=== PATIENT | male | born 1965 | race Caucasian/White ===

== ENCOUNTER → 2020-02-28 09:03 | Outpatient (BNVA) | payer MEDICARE, SELFPAY | PROVIDERS: PCP Family Medicine; Referring Provider Family Medicine; Visit Provider Psychiatry & Neurology Neurology | DX: Z76.89 Persons encountering health services in other specified circumstances (principal) ==

== ENCOUNTER → 2020-03-06 13:40 | Outpatient (BNVA) | payer MEDICARE, SELFPAY | PROVIDERS: Visit Provider Internal Medicine Gastroenterology | DX: K52.9 Noninfective gastroenteritis and colitis, unspecified (principal) | CPT/HCPCS: 99212; Q3014 ==

== ENCOUNTER → 2020-03-14 13:52 | Outpatient (REF) | payer MEDICARE, SELFPAY | LOC: HO.SL 13:52 | PROVIDERS: Visit Provider Psychiatry & Neurology Neurology | DX: R06.83 Snoring (principal); G47.10 Hypersomnia, unspecified; G47.00 Insomnia, unspecified | CPT/HCPCS: 95806 ==

== ENCOUNTER → 2020-06-12 09:11 | Outpatient (BNVA) | payer MEDICARE, SELFPAY | PROVIDERS: PCP Family Medicine; Visit Provider Nurse Practitioner Family | DX: Z76.89 Persons encountering health services in other specified circumstances (principal) | CPT/HCPCS: Q3014 ==

== ENCOUNTER → 2020-06-19 08:41 | Outpatient (BNVA) | payer MEDICARE, SELFPAY | PROVIDERS: PCP Family Medicine; Visit Provider Internal Medicine Gastroenterology | CPT/HCPCS: Q3014 ==

== ENCOUNTER → 2020-08-28 10:07 | Outpatient (BNVA) | payer MEDICARE, SELFPAY | PROVIDERS: PCP Family Medicine; Visit Provider Nurse Practitioner Family | DX: Z13.89 Encounter for screening for other disorder (principal) | CPT/HCPCS: Q3014 ==

== ENCOUNTER 2020-09-27 11:44 | Outpatient (REF) | payer MEDICARE, SELFPAY ==
[2020-09-27 14:36] LABS: Alanine Aminotransferase 150 U/L (0-40); Albumin Level 4.8 g/dL (3.5-5.0); Alkaline Phosphatase 96 U/L (39-117); Anion Gap 14 (12-20); Aspartate Amino Transferase 178 U/L (5-37); Bilirubin Total 0.8 mg/dL (0.0-1.0); Blood Urea Nitrogen 10 mg/dL (9-16); Calcium 9.8 mg/dL (8.4-10.2); Carbon Dioxide 24 mmol/L (22-29); Chloride 104 mmol/L (96-108); Cholesterol 183 mg/dL; Estimated Glomerular Filt Rate > 60; Glucose Fasting 108 mg/dL (60-99); HDL Cholesterol 56 mg/dL; LDL Cholesterol Calculated 89 mg/dl; Potassium 4.5 mmol/L (3.3-5.1); Sodium 137 mmol/L (135-145); Total Protein 8.2 g/dL (6.5-8.0); Triglycerides 192 mg/dL
[2020-09-27 14:57] LABS: Prostate Specific Antigen Scr 0.65 ng/mL (<0.05-4.0); TSH reflex Free T4 0.91 uIU/mL (0.32-4.0)
== END 2020-09-27 11:45 | disposition home or self-care (01) ==
LOC: HO.WFDLDS 11:44
PROVIDERS: Visit Provider Family Medicine
DX: Z00.00 Encounter for general adult medical examination without abnormal findings (principal); Z12.5 Encounter for screening for malignant neoplasm of prostate
CPT/HCPCS: 36415; 80053; 80061; 84153; 84443

== ENCOUNTER 2022-04-11 09:42 | Outpatient (REF) | payer OTHER, SELFPAY ==
[2022-04-11 12:15] LABS: Magnesium 1.8 mg/dL (1.6-2.6)
[2022-04-11 14:53] LABS: Vitamin B12 880 pg/mL (200-900)
[2022-04-11 15:07] LABS: Folate 5.7 ng/mL (> or = 4.0)
[2022-04-17 15:37] LABS: Vitamin B1 <6 nmol/L (8-30)
[2022-04-19 15:08] LABS: Vitamin B6 6.4 ng/mL (2.1-21.7)
== END 2022-04-11 09:43 | disposition home or self-care (01) ==
LOC: HO.WFDLDS 09:42
PROVIDERS: Visit Provider Hospitalist
DX: K59.00 Constipation, unspecified (principal); F10.10 Alcohol abuse, uncomplicated
CPT/HCPCS: 36415; 82607; 82746; 83735; 84207; 84425

== ENCOUNTER 2022-12-09 10:30 | Outpatient (AMB) | payer OTHER, MEDICAID, SELFPAY ==
[2022-12-09 10:34] VITALS: BP 132/74; PULSE 96; O2SAT 97; BMI 32.7
--- NOTE | 2022-12-09 10:34 | A.OFFPC_ITS ---
Vital Signs 12/09/22 10:34 Height 5 ft 10 in Weight 228 lb 4 oz BMI 32.7 BP 132/74 Blood Pressure Location Lt brachial Position Sitting Pulse 96 Pulse Source Pulse Oximeter Pulse Oximetry (%) 97 Oxygen Delivery Method Room Air Intake Visit Reasons: [facility] 11/18/22 - swelling of legs/abdomen Intake Note: Patient is here for follow up ED visit on 11/18. Swollen in legs, feet, and abdomen. Allergies No Known Allergies Allergy (Verified 12/09/22 10:39) Medication List - Last Reconciled 12/09/22 by Ryan Espinal MD amitriptyline 20 mg (2 x 10 mg) PO BEDTIME blood pressure monitor Automatic, Digital. Dx: I10. Daily As directed, 999 days/lifetime clonidine HCl 0.1 mg PO BID 30 days clonidine HCl 0.1 mg PO BID 30 days clotrimazole-betamethasone 1-0.05 % 1 appl topical BID 2 weeks COVID-19 vacc,mRNA(Pfizer)(PF) 0.3 mL IM Q3W mesalamine ER 1.5 grams (4 x 0.375 gram) PO QAM 90 days omeprazole 40 mg PO DAILY pramipexole 0.25 mg PO BEDTIME simvastatin 20 mg PO DAILY sulfamethoxazole-trimethoprim 800-160 mg (Bactrim DS) 1 tab PO Q12H 10 days topiramate 50 mg PO DAILY varenicline 1 mg PO BID 12 weeks vitamin B complex ER (Complex B-100 tablet,extended release) 1 tab PO DAILY 90 days Tobacco use date assessed: 12/09/22 Dental Screening Dental Screen Date: 12/09/22 Did you have a dental visit in the last 12 months?: No Did you have a dental problem in the last 6 months where you did not have access to dental care?: No Was dental information given to patient?: Patient has dentist HPI [facility] 11/18/22 - swelling of legs/abdomen HPI Details Pt presents to follow-up emergency department visit for bilateral lower extremity edema/fall. Pt stated he has had swelling in his legs bilaterally, chronic and had been getting worse. He had tripped on the sidewalk. 2+ LE edema was found and was apparently secondary to cirrhosis. He reports he has cut back on his alcohol use since his visit to the ED. COUNTS INCLUDE 234 BEDS AT THE [facility] Surgical History H/O colonoscopy History of arthroscopy of right knee History of esophagogastroduodenoscopy (EGD) History of hip replacement Family History Father Diabetes mellitus Mother HTN (hypertension) Brother No problems noted. Sister No problems noted. Sister No problems noted. Sister No problems noted. Social History Household Members: Friend(s) Housing: Apartment Alcohol intake: current Alcohol intake frequency: a few times a month Patient Tobacco Use Status: Current everyday Tobacco user Cigarettes Per Day: 6 e-Cigarette/Vaping Use: Never Used service: No Current occupational status: disabled Cognitive needs: No Hearing needs: No Vision needs: No Review of Systems Const Denies chills, Denies fatigue, Denies fever(s), Denies headache(s) and Denies weakness ENT Denies dizziness and Denies headache(s) Card Denies dyspnea Resp Denies cough, Denies dyspnea, Denies wheezing and Denies other (shortness of breath) Musc Denies numbness and Denies tingling Neuro Denies dizziness, Denies headache(s), Denies numbness, Denies tingling and Denies weakness Psych Denies anxiety and Denies depression Endo Denies fatigue Aller/Immun Denies wheezing Physical exam (Primary Care) Vital Signs: Last Vital Signs Pulse 96 12/09/22 10:34 BP 132/74 12/09/22 10:34 Pulse Ox 97 12/09/22 10:34 Oxygen Delivery Method Room Air 12/09/22 10:34 BMI result Body Mass Index 32.7 Tobacco/Smoking Status: Tobacco use Status Tobacco use date assessed 12/09/22 12/09/22 10:40 Patient Tobacco Use Status Current everyday Tobacco 12/09/22 10:40 e-Cigarette/Vaping Use Never Used 12/09/22 10:40 Const General: well developed; No acute distress Nutritional Appearance: well nourished Orientation/consciousness: patient oriented x3 HENMT Head: Yes normocephalic and Yes atraumatic Eyes General: appearance normal, both eyes and all related structures Pupils: Equal, round and reactive pupils present EOM: EOMs intact bilaterally Resp Effort & Inspection: normal respiratory effort Neuro General: patient oriented x3 and gait normal Cranial nerves: Yes Equal, round and reactive pupils present Psych Affect: normal affect Assessment and Plan Assessment & Plan (1) Swelling of lower extremity: Code(s): M79.89 - Other specified soft tissue disorders Plan: Swelling of lower extremities which is primarily a pitting edema. Will give him furosemide but I did let him know that this may have limited affect as this is primarily due to liver failure. Elevate legs Check labs Encouraged weaning and cessation of alcohol (2) Cirrhosis: Code(s): K74.60 - Unspecified cirrhosis of liver Plan: Portal hypertension and cirrhosis of the liver with ascites Will refer to Gastroenterology. Started a beta-leonard for his elevated blood pressures with high-normal pulse and also portal hypertension. Strongly encouraged patient to wean and cease alcohol - see below (3) Ascites: Code(s): R18.8 - Other ascites Plan: As above, patient has significant buildup of fluid in his abdomen secondary to cirrhosis from his alcohol abuse. Encouraged cessation Referred to GI (4) Alcohol abuse: Code(s): F10.10 - Alcohol abuse, uncomplicated Plan: Discussed with patient that ultimately the above issues are secondary to alcohol abuse. [place] [facility] [place] says he has no transportation. Offered a pT1 form to get him transportation and he still declines. We discussed that ultimately he will need to make a decision that he is ready to discontinue alcohol use. Advised weaning and cessation. I let him know that he can contact me regarding help with this through the a addiction medicine department. Orders: Orders Comprehensive Met. Panel Today M79.89 - Other specified soft tissue disorders Complete Blood Count Auto Diff Today Z00.00 - Encounter for general adult medical examination without abnormal findings UA and rflx microscopic Today Z00.00 - Encounter for general adult medical examination without abnormal findings Medications: New nadolol 20 mg PO DAILY 30 tabs 2RF 30 days furosemide 20 mg PO DAILY 30 tabs 1RF 30 days Coding Level of Care Code Est Pt Level 4 (37830) Diagnoses Swelling of lower extremity M79.89 Cirrhosis K74.60 Ascites R18.8 Alcohol abuse F10.10
== END 2022-12-09 11:38 | disposition home or self-care (01) ==
PROVIDERS: PCP Family Medicine; Visit Provider Family Medicine
DX: M79.89 Other specified soft tissue disorders (principal); K74.60 Unspecified cirrhosis of liver; R18.8 Other ascites; F10.10 Alcohol abuse, uncomplicated
CPT/HCPCS: 99214

== ENCOUNTER 2022-12-09 11:41 | Outpatient (REF) | payer OTHER, MEDICAID, SELFPAY ==
[2022-12-09 14:39] LABS: MANUAL DIFF FLAG NO
[2022-12-09 14:47] LABS: Basophils Percent Auto 0.8 % (0-2); Eosinophils Absolute Auto 0.1 X10*3/uL (0.0-0.4); Eosinophils Percent Auto 2.7 % (0-4); Hematocrit 36.4 % (42.0-52.0); Hemoglobin 12.8 g/dl (14.0-18.0); Imm Gran Abs Auto 0.01 X10*3/uL (0.00-0.03); Imm Gran Pct Auto 0.2 % (0.0-0.4); Lymphocytes Absolute Auto 1.4 X10*3/uL (1.2-4.9); Lymphocytes Percent Auto 27.7 % (20-40); Mean Corpuscular HGB Conc 35.2 g/dl (31.0-36.0); Mean Corpuscular Hemoglobin 35.4 pg (27.0-33.0); Mean Corpuscular Volume 100.6 fL (80.0-98.0); Mean Platelet Volume 10.3 fL (9.4-12.4); Monocytes Absolute Auto 0.5 X10*3/uL (0.1-1.2); Monocytes Percent Auto 9.1 % (2-11); Neutrophils Absolute Auto 3.1 x10*3/uL (2.0-8.3); Neutrophils Percent Auto 59.5 % (45-73); Red Blood Count 3.62 X10*6/uL (4.60-5.80); Red Cell Distribution Width 13.5 % (11.0-16.0); White Blood Count 5.2 X10*3/uL (4.8-10.8)
[2022-12-09 15:03] LABS: Alanine Aminotransferase 29 U/L (0-40); Albumin Level 2.8 g/dL (3.5-5.0); Alkaline Phosphatase 112 U/L (39-117); Anion Gap 12 (12-20); Aspartate Amino Transferase 77 U/L (5-37); Bilirubin Total 1.4 mg/dL (0.0-1.0); Blood Urea Nitrogen 4 mg/dL (9-16); Calcium 8.5 mg/dL (8.4-10.2); Carbon Dioxide 21 mmol/L (22-29); Chloride 104 mmol/L (96-108); Estimated Glomerular Filt Rate > 60; Glucose Random 106 mg/dL (60-115); Potassium 4.2 mmol/L (3.3-5.1); Sodium 133 mmol/L (135-145); Total Protein 7.4 g/dL (6.5-8.0)
[2022-12-09 15:28] LABS: Platelet Count 96 X10*3/uL (160-400)
== END 2022-12-09 11:42 | disposition home or self-care (01) ==
LOC: HO.WFDLDS 11:41
PROVIDERS: Visit Provider Family Medicine
DX: Z00.00 Encounter for general adult medical examination without abnormal findings (principal); M79.89 Other specified soft tissue disorders
CPT/HCPCS: 36415; 80053; 85025

== ENCOUNTER 2023-01-07 10:28 | Outpatient (AMB) | payer OTHER, MEDICAID, SELFPAY ==
[2023-01-07 10:32] VITALS: BP 124/62; PULSE 75; RESP 12; TEMP 36.6; O2SAT 99; BMI 27.7
--- NOTE | 2023-01-07 10:32 | MHC.PC.OV ---
Vital Signs 01/07/23 10:32 Height 5 ft 10 in Weight 193 lb 4 oz BMI 27.7 BP 124/62 Blood Pressure Location Rt brachial Position Sitting Respiration 12 Pulse 75 Pulse Source Pulse Oximeter Temp 97.8 F Temp Source Temporal Artery Scan Pulse Oximetry (%) 99 Oxygen Delivery Method Room Air Intake Visit Reasons: f/u abdominal swelling, LE swelling Intake Note: Patient states that he was told to go to GI office and states that he ended up losing 20 pounds within the month and didn't think it was necessary to go see GI. Patient would like yo know if its still needed and states he did receive letter in mail from GI office. 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 Had given him a script for furosemide. Labs were drawn 12/09/22. Reviewed labs with pt. Macrocytic anemia. Mildly low sodium at 133. Liver enzymes imprved from labs drawn 09/27/20. AST 77, ALT 29. [facility] Medical History No pertinent past medical history Surgical History History of hip replacement History of esophagogastroduodenoscopy (EGD) H/O colonoscopy History of arthroscopy of right knee Family History Father Diabetes mellitus Mother HTN (hypertension) Brother No problems noted. Sister No problems noted. Sister No problems noted. Sister No problems noted. Social History Household Members: Friend(s) Housing: Apartment Alcohol intake: current Alcohol intake frequency: a few times a month Patient Tobacco Use Status: Current everyday Tobacco user Cigarettes Per Day: 6 e-Cigarette/Vaping Use: Never Used service: No Current occupational status: disabled Cognitive needs: No Hearing needs: No Vision needs: No Physical exam (Primary Care) Vital Signs: Last Vital Signs Temp 97.8 F 01/07/23 10:32 Pulse 75 01/07/23 10:32 Resp 12 01/07/23 10:32 BP 124/62 01/07/23 10:32 Pulse Ox 99 01/07/23 10:32 Oxygen Delivery Method Room Air 01/07/23 10:32 BMI result Body Mass Index 27.7 Tobacco/Smoking Status: Tobacco use Status Tobacco use date assessed 12/09/22 01/07/23 10:45 Patient Tobacco Use Status Current everyday Tobacco 01/07/23 10:45 e-Cigarette/Vaping Use Never Used 01/07/23 10:45 Assessment and Plan Assessment & Plan (1) Ascites: Code(s): R18.8 - Other ascites Plan: Mildly improved. Patient has greatly decreased his alcohol intake. Encouraged him to continue weaning down with a goal of abstinence. He is working on this (2) Cirrhosis: Code(s): K74.60 - Unspecified cirrhosis of liver Plan: As above (3) Swelling of lower extremity: Code(s): M79.89 - Other specified soft tissue disorders Plan: Much improved. Continue furosemide Elevate legs Check renal function (4) Alcohol abuse: Code(s): F10.10 - Alcohol abuse, uncomplicated Plan: As above work at cessation (5) Elevated transaminase level: Code(s): R74.01 - Elevation of levels of liver transaminase levels Plan: Improving Continue to avoid alcohol (6) Macrocytic anemia: Code(s): D53.9 - Nutritional anemia, unspecified Plan: Likely multifactorial but primarily due to direct effects of alcohol intake and liver failure. Will repeat CBC as he has decreased his drinking He is on a B12 supplement (7) Hyponatremia: Code(s): E87.1 - Hypo-osmolality and hyponatremia Plan: Mild hyponatremia Will recheck and follow this Orders: Orders Comprehensive Met. Panel Today K74.60 - Unspecified cirrhosis of liver Complete Blood Count Auto Diff Today D53.9 - Nutritional anemia, unspecified, Z00.00 - Encounter for general adult medical examination without abnormal findings Coding Level of Care Code Est Pt Level 4 (13231) Diagnoses Ascites R18.8 Cirrhosis K74.60 Swelling of lower extremity M79.89 Alcohol abuse F10.10 Elevated transaminase level R74.01 Macrocytic anemia D53.9 Hyponatremia E87.1
== END 2023-01-07 11:57 | disposition home or self-care (01) ==
PROVIDERS: PCP Family Medicine; Visit Provider Family Medicine
DX: R18.8 Other ascites (principal); K74.60 Unspecified cirrhosis of liver; M79.89 Other specified soft tissue disorders; F10.10 Alcohol abuse, uncomplicated; R74.01 Elevation of levels of liver transaminase levels; D53.9 Nutritional anemia, unspecified; E87.1 Hypo-osmolality and hyponatremia
CPT/HCPCS: 99214

== ENCOUNTER 2023-07-06 15:52 | Outpatient (AMB) | payer MEDICARE, SELFPAY ==
--- NOTE | 2023-07-06 15:59 | MHC.PC.OV ---
Vital Signs 07/06/23 16:02 Height 5 ft 10 in Weight 192 lb 6 oz BMI 27.6 BP 122/70 Blood Pressure Location Lt brachial Position Sitting Pulse 96 Pulse Source Pulse Oximeter Pulse Oximetry (%) 97 Oxygen Delivery Method Room Air Intake Visit Reasons: knee pain Intake Note: Patient is here with left knee pain, went out 3 times yesterday. He states the right knee is more painful. Allergies No Known Allergies Allergy (Verified 07/06/23 16:05) Medication List - Last Reconciled 07/06/23 by Ryan Espinal MD amitriptyline 20 mg (2 x 10 mg) PO BEDTIME amoxicillin 875 mg PO ONCE 1 day blood pressure monitor Automatic, Digital. Dx: I10. Daily As directed, 999 days/lifetime clonidine HCl 0.1 mg PO BID 30 days furosemide 20 mg PO DAILY 90 days nadolol 20 mg PO DAILY 30 days omeprazole 40 mg PO DAILY pramipexole 0.25 mg PO BEDTIME simvastatin 20 mg PO DAILY topiramate 50 mg PO DAILY varenicline 1 mg PO BID 12 weeks vitamin B complex ER (Complex B-100 tablet,extended release) 1 tab PO DAILY 90 days Tobacco use date assessed: 07/06/23 HPI knee pain HPI Details 58 y/o male presents today with complaints of bilateral knee pain with instability. Pt reports knee pain started yesterday and that something had come out while climbing down the stairs when he felt his knees give out. He reports he felt his knees give out 3 times. Pt reports recent R knee x-ray at [facility]. He notes he is not using anything for pain meds. [facility] Medical History No pertinent past medical history Surgical History History of hip replacement History of esophagogastroduodenoscopy (EGD) H/O colonoscopy History of arthroscopy of right knee Family History Father Diabetes mellitus Mother HTN (hypertension) Brother No problems noted. Sister No problems noted. Sister No problems noted. Sister No problems noted. Social History Household Members: Friend(s) Housing: Apartment Alcohol intake: current Alcohol intake frequency: a few times a month Patient Tobacco Use Status: Current everyday Tobacco user Cigarettes Per Day: 6 e-Cigarette/Vaping Use: Never Used service: No Current occupational status: disabled Cognitive needs: No Hearing needs: No Vision needs: No Review of Systems Const Denies chills, Denies fatigue, Denies fever(s), Denies headache(s) and Denies weakness ENT Denies dizziness and Denies headache(s) Card Denies dyspnea Resp Denies cough, Denies dyspnea, Denies wheezing and Denies other (shortness of breath) Musc Details: R knee pain and swelling Denies numbness and Denies tingling Neuro Denies dizziness, Denies headache(s), Denies numbness, Denies tingling and Denies weakness Psych Denies anxiety and Denies depression Endo Denies fatigue Aller/Immun Denies wheezing Physical exam (Primary Care) Vital Signs: Last Vital Signs Pulse 96 07/06/23 16:02 BP 122/70 07/06/23 16:02 Pulse Ox 97 07/06/23 16:02 Oxygen Delivery Method Room Air 07/06/23 16:02 BMI result Body Mass Index 27.6 Tobacco/Smoking Status: Tobacco use Status Tobacco use date assessed 07/06/23 07/06/23 16:07 Patient Tobacco Use Status Current everyday Tobacco 07/06/23 16:00 e-Cigarette/Vaping Use Never Used 07/06/23 16:00 Const General: well developed; No acute distress Nutritional Appearance: well nourished Orientation/consciousness: patient oriented x3 HENMT Head: Yes normocephalic and Yes atraumatic Eyes General: appearance normal, both eyes and all related structures Pupils: Equal, round and reactive pupils present EOM: EOMs intact bilaterally Resp Effort & Inspection: normal respiratory effort Skin Other: 1 cm neoplasm at bridge of his nose Neuro General: patient oriented x3 and gait normal Cranial nerves: Yes Equal, round and reactive pupils present Psych Affect: normal affect Assessment and Plan Assessment & Plan (1) Bilateral knee pain: Code(s): M25.561 - Pain in right knee; M25.562 - Pain in left knee Plan: Right?knee?pain?with?effusion?and?locking.??Concern?for?meniscal?injury?and?patient?notes?that?he?has?had?meniscal?injuries?to?his?right?knee?in?the?past. Check?x-ray?and?refer?to?ortho Left?knee?pain?with?effusion?and?sensation?of?giving?out. Concern?for?ligamentous?injury Check?x-ray?and?refer?to?ortho Given?patient's?alcohol?use?and?liver?disease?as?well?as?stomach?problems,?he?is?avoiding?Tylenol?and?NSAIDs. Will?have?him?use?prednisone?and?he?can?use?diclofenac?gel?as?well Ice/heat (2) Alcohol abuse: Code(s): F10.10 - Alcohol abuse, uncomplicated Plan: Discussed?with?patient?that?his?alcohol?use liver?and?stomach?issues?limit?medications?and?treatments?we?can?avail?ourselves?of?for?his?knees?and?other?pain. 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 Referred?to?dermatology Orders: Orders XR knee RT 3V Today M25.561 - Pain in right knee, M25.562 - Pain in left knee XR knee LT 3V Today M25.561 - Pain in right knee, M25.562 - Pain in left knee Referrals Orthopedics Referral M25.561 - Pain in right knee, M25.562 - Pain in left knee Dermatology Referral D48.5 - Neoplasm of uncertain behavior of skin Pain Management Referral G89.29 - Other chronic pain, M54.9 - Dorsalgia, unspecified Medications: New prednisone 40 mg (2 x 20 mg) PO DAILY 10 tabs 0RF 5 days Coding Level of Care Code Est Pt Level 4 (63760) Diagnoses Bilateral knee pain M25.561; M25.562 Alcohol abuse F10.10 Chronic back pain M54.9; G89.29 Neoplasm of uncertain behavior of skin D48.5
[2023-07-06 16:02] VITALS: BP 122/70; PULSE 96; O2SAT 97; BMI 27.6
== END 2023-07-06 16:45 | disposition home or self-care (01) ==
PROVIDERS: PCP Family Medicine; Visit Provider Family Medicine
DX: M25.561 Pain in right knee (principal); M25.562 Pain in left knee; F10.10 Alcohol abuse, uncomplicated; M54.9 Dorsalgia, unspecified; G89.29 Other chronic pain; D48.5 Neoplasm of uncertain behavior of skin
CPT/HCPCS: 99214

== ENCOUNTER 2023-07-27 08:49 | Outpatient (AMB) | payer MEDICARE, SELFPAY ==
--- NOTE | 2023-07-27 08:42 | A.OFFPC_ITS ---
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 Following anemia and liver enzymes. Had referred him to ortho for his knees. Referred to pain management for his low back pain. No recent labs to review. R Knee x-ray at [facility] shows osteoarthritis, worst in the medial compartment. L knee x-ray shows moderate tricompartmental degenerative osteoarthritis but no acute abnormality. Trace suprapatellar effusion. He continues using ibuprofen for relief. [facility] Medical History No pertinent past medical history Surgical History History of hip replacement History of esophagogastroduodenoscopy (EGD) H/O colonoscopy History of arthroscopy of right knee Family History Father Diabetes mellitus Mother HTN (hypertension) Brother No problems noted. Sister No problems noted. Sister No problems noted. Sister No problems noted. Social History Household Members: Friend(s) Housing: Apartment Alcohol intake: current Alcohol intake frequency: a few times a month Patient Tobacco Use Status: Current everyday Tobacco user Cigarettes Per Day: 6 e-Cigarette/Vaping Use: Never Used service: No Current occupational status: disabled Cognitive needs: No Hearing needs: No Vision needs: No Review of Systems Const Denies chills, Denies fatigue, Denies fever(s), Denies headache(s) and Denies weakness ENT Denies dizziness and Denies headache(s) Card Denies dyspnea Resp Denies cough, Denies dyspnea, Denies wheezing and Denies other (shortness of breath) Musc Denies numbness and Denies tingling Neuro Denies dizziness, Denies headache(s), Denies numbness, Denies tingling and Denies weakness Psych Denies anxiety and Denies depression Endo Denies fatigue Aller/Immun Denies wheezing Physical exam (Primary Care) Tobacco/Smoking Status: Tobacco use Status Tobacco use date assessed 07/06/23 07/27/23 08:47 Patient Tobacco Use Status Current everyday Tobacco 07/27/23 08:47 e-Cigarette/Vaping Use Never Used 07/27/23 08:47 Const General: well developed; No acute distress Nutritional Appearance: well nourished Orientation/consciousness: patient oriented x3 HENMT Head: Yes normocephalic and Yes atraumatic Eyes General: appearance normal, both eyes and all related structures Pupils: Equal, round and reactive pupils present EOM: EOMs intact bilaterally Resp Effort & Inspection: normal respiratory effort Neuro General: patient oriented x3 and gait normal Cranial nerves: Yes Equal, round and reactive pupils present Psych Affect: normal affect Telehealth Telehealth Location of provider rendering services: practice address Location of patient: address on file Patient Identification confirmed using: Name, : Yes Telehealth method: voice only Patient verbally consented to treatment: Yes Patient verbally consented to billing insurance company: Yes Patient informed of any privacy concerns related to visit: Yes Minutes spent on Phone/Video with Pt.: 13 Assessment and Plan Assessment & Plan (1) Bilateral knee pain: Code(s): M25.561 - Pain in right knee; M25.562 - Pain in left knee Plan: Ongoing?bilateral?knee?pain?with?osteoarthritis?of?bilateral?knees?on?x-rays Patient?is?referred?to??and?I?encouraged?him?to?call?to?make?the?rosemary ointment. He?has?been?using?ibuprofen?and?I?will?switch?this?to?meloxicam. Can?use?lidocaine?roll-on?in?the?evenings Also?encouraged?ice?and?relative?rest (2) Low back pain: Code(s): M54.50 - Low back pain, unspecified Plan: Chronic?low?back?pain.??I?had?referred?him?to?pain?management?but?he?was?sick?wh en?they?called?and?deferred?scheduling?an?appointment. Still?having?pain?and?encouraged?him?to?give?pain?management?a?call?to?set?up?th at?appointment As?above,?sending?a?script?for?meloxicam?which?should?also?help If?not?improving,?patient?would?like?to?consider?referral?to?chiropractic?or?acu puncture. Medications: New meloxicam 15 mg PO DAILY 30 days 30 tabs 2RF Coding Level of Care Code Tele Est Pt Level 2 (24866) Diagnoses Bilateral knee pain M25.561; M25.562 Low back pain M54.50
== END 2023-07-27 09:22 | disposition home or self-care (01) ==
LOC: HO.HMGFM 08:49
PROVIDERS: PCP Family Medicine; Visit Provider Family Medicine
DX: M25.561 Pain in right knee (principal); M25.562 Pain in left knee; M54.50 Low back pain, unspecified
CPT/HCPCS: 99442

== ENCOUNTER 2023-09-15 08:58 | Outpatient (AMB) | payer MEDICARE, SELFPAY ==
[2023-09-15 09:05] VITALS: BP 120/70; PULSE 86; O2SAT 98; BMI 30.1
--- NOTE | 2023-09-15 09:05 | A.OFFPC_ITS ---
Vital Signs 09/15/23 09:05 Height 5 ft 10 in Weight 210 lb BMI 30.1 BP 120/70 Blood Pressure Location Lt brachial Position Sitting Pulse 86 Pulse Source Pulse Oximeter Pulse Oximetry (%) 98 Oxygen Delivery Method Room Air Intake Visit Reasons: Swelling in both feet Intake Note: Patient is here with bilateral swelling in feet and legs. Allergies No Known Allergies Allergy (Verified 09/15/23 09:21) Medication List - Last Reconciled 09/15/23 by Lizette Alford, [facility]- amitriptyline 20 mg (2 x 10 mg) PO BEDTIME blood pressure monitor Automatic, Digital. Dx: I10. Daily As directed, 999 days/lifetime clonidine HCl 0.1 mg PO BID 30 days furosemide 20 mg PO DAILY 90 days meloxicam 15 mg PO DAILY 30 days nadolol 20 mg PO DAILY 30 days omeprazole 40 mg PO DAILY pramipexole 0.25 mg PO BEDTIME prednisone 40 mg (2 x 20 mg) PO DAILY 5 days simvastatin 20 mg PO DAILY topiramate 50 mg PO DAILY varenicline 1 mg PO BID 12 weeks vitamin B complex ER (Complex B-100 tablet,extended release) 1 tab PO DAILY 90 days Tobacco use date assessed: 09/15/23 Dental Screening Dental Screen Date: 09/15/23 Did you have a dental visit in the last 12 months?: No Did you have a dental problem in the last 6 months where you did not have access to dental care?: No Was dental information given to patient?: Patient has dentist HPI HPI Comments History of Present Illness Details 58-year-old male with cirrhosis here tod ay with complaints of acute on chronic bilateral lower extremity edema Started 4 days ago Taking lasix daily as directed Denies any recent travel, prolonged immobility, SOB, cough, chest pain. reports able to lie flat. Weighs self a home occasionally and noticed his wt to have increased. States wt around 200 lbs usually, recorded at 210 lbs today. Eats a lot of salt i love salt [facility] Medical History No pertinent past medical history Surgical History History of hip replacement History of esophagogastroduodenoscopy (EGD) H/O colonoscopy History of arthroscopy of right knee Family History (Updated 09/15/23 @ 09:09 by Juanis Jones CMA) Father Diabetes mellitus Mother HTN (hypertension) Brother No problems noted. Sister No problems noted. Sister No problems noted. Sister No problems noted. Social History Household Members: Friend(s) Housing: Apartment Alcohol intake: current Alcohol intake frequency: a few times a month Patient Tobacco Use Status: Current everyday Tobacco user Cigarettes Per Day: 6 e-Cigarette/Vaping Use: Never Used service: No Current occupational status: disabled Cognitive needs: No Hearing needs: No Vision needs: No Questionnaire PHQ-9 Over the last 2 weeks, how often have you been bothered by any of the following problems? 1. Little interest or pleasure in doing things: not at all 2. Feeling down, depressed, or hopeless: not at all 3. Trouble falling or staying asleep, or sleeping too much: not at all 4. Feeling tired or having little energy: not at all 5. Poor appetite or overeating: not at all 6. Feeling bad about yourself - or that you are a failure or have let yourself or your family down: not at all 7. Trouble concentrating on things, such as reading the newspaper or watching te levision: not at all 8. Moving or speaking so slowly that other people could have noticed. Or the opposite - being so fidgety or restless that you have been moving around a lot more than usual: not at all 9. Thoughts that you would be better off or of hurting yourself in some way: not at all Total score: 0 Depression Screening Interpretation: Negative Depression Screening Done: Yes Source: Developed by Drs. Tulio Teixeira, Carolyn Thornton, Genaro Solorzano and colleagues, with an educational ping from [email or web address] Thrive Questionnaire Date Thrive assessed: 09/15/23 I am a: Patient What is your living situation today?: I have a steady place to live Within the past 12 months, did the food you bought not last and you didn't have the money to get more?: Never true Within the past 12 months, did you worry whether your food would run out before you got money to buy more?: Never true Do you have trouble paying for medicines?: No Do you have trouble getting transportation to medical appointments?: No Do you have trouble paying your heating and electricity bill?: No Do you have trouble taking care of your child, family member or friend?: No Do you have trouble with day-to-day activities such as bathing, preparing meals, shopping, managing finances, etc.?: No Are you currently unemployed and looking for a job?: No Are you interested in more education?: No THRIVE Score: 0 AUDIT C Alcohol Use Questionnaire (AUDIT-C) 1. How often do you have a drink containing alcohol?: 2-3 times a week 2. How many drinks containing alcohol do you have on a typical day when you are drinking?: 1 or 2 3. How often do you have six or more drinks on one occasion?: Never Total Score: 3 JOHN-7 AMB Questionnaire JOHN-7 Date JOHN - 7 assessed: 09/15/23 Feeling nervous, anxious, or on edge: 0 = Not at all Not being able to stop or control worryin = Not at all Worrying too much about different things: 0 = Not at all Trouble relaxin = Not at all Being so restless that it is hard to sit still: 0 = Not at all Becoming easily annoyed or irritable: 0 = Not at all Feeling afraid as if something awful might happen: 0 = Not at all Total JOHN-7 score (0-4 normal; 5-9 mild; 10-14 moderate; 15-21 severe): 0 Source: Developed by Drs. Tulio Teixeira, Carolyn Thornton, Genaro Solorzano and colleagues, with an educational ping from [email or web address]. Review of Systems Const All systems reviewed & are unremarkable except as noted in HPI and below Physical exam (Primary Care) Vital Signs: Last Vital Signs Pulse 86 09/15/23 09:05 BP 120/70 09/15/23 09:05 Pulse Ox 98 09/15/23 09:05 Oxygen Delivery Method Room Air 09/15/23 09:05 BMI result Body Mass Index 30.1 BMI Assessment/Plan discussion: High BMI High, discussed plan: lifestyle Tobacco/Smoking Status: Tobacco use Status Tobacco use date assessed 09/15/23 09/15/23 09:09 Patient Tobacco Use Status Current everyday Tobacco 09/15/23 09:09 e-Cigarette/Vaping Use Never Used 09/15/23 09:09 PHQ-9: PHQ-9 Score PHQ-9: Total score 0 09/15/23 09:13 Depression Screening Interpretation: Negative Thrive Assessment: Date of Thrive Assessment Date Thrive assessed 09/15/23 09/15/23 09:13 Const Other: Awake alert oriented Regular rate and rhythm Lung sounds clear to auscultation bilat Protuberant abdomen consistent with ascites and cirrhosis Bilateral lower extremity with +2 edema, skin intact, warm, hairless Assessment and Plan Assessment & Plan (1) Swelling of lower extremity: Code(s): M79.89 - Other specified soft tissue disorders (2) Cirrhosis: Code(s): K74.60 - Unspecified cirrhosis of liver Qualifiers: Hepatic cirrhosis type: alcoholic cirrhosis Ascites presence: with ascites Qualified Code(s): K70.31 - Alcoholic cirrhosis of liver with ascites Plan Patient is already on Lasix 20 mg daily. Given his ascites and cirrhosis we will start him on spironolactone 100 mg p.o. daily. Medications: New spironolactone 100 mg PO QAM 30 tabs 0RF Patient Instructions: Start spironolactone 100mg PO QAM, cont to take all other meds as prescribed Weigh self daily, keep log at home RTO in 1 week for f/u with Dr Antunez or myself Coding Level of Care Code Est Pt Level 4 (30712) Diagnoses Swelling of lower extremity M79.89 Alcoholic cirrhosis of liver with ascites K70.31 Hepatic cirrhosis type: alcoholic cirrhosis Ascites presence: with ascites
== END 2023-09-15 10:29 | disposition home or self-care (01) ==
PROVIDERS: PCP Family Medicine; Visit Provider Nurse Practitioner Family
DX: M79.89 Other specified soft tissue disorders (principal); K70.31 Alcoholic cirrhosis of liver with ascites
CPT/HCPCS: 99214

== ENCOUNTER 2023-09-23 09:44 | Outpatient (AMB) | payer MEDICARE, SELFPAY ==
[2023-09-23 09:49] VITALS: BP 128/60; PULSE 79; RESP 15; TEMP 36.3; O2SAT 99; BMI 28.9
--- NOTE | 2023-09-23 09:49 | A.OFFPC_ITS ---
Vital Signs 09/23/23 09:49 Height 5 ft 10 in Weight 201 lb 4 oz BMI 28.9 BP 128/60 Blood Pressure Location Rt brachial Position Sitting Respiration 15 Pulse 79 Pulse Source Pulse Oximeter Temp 97.4 F Temp Source Temporal Artery Scan Pulse Oximetry (%) 99 Oxygen Delivery Method Room Air Intake Visit Reasons: FU BLE edema, start spironolactone Conveyor Feeder Required: No Accompanied by: Self / Same As Patient Allergies No Known Allergies Allergy (Verified 09/23/23 10:02) Medication List - Last Reconciled 09/23/23 by Lizette Alford, [facility] [place] amitriptyline 20 mg (2 x 10 mg) PO BEDTIME blood pressure monitor Automatic, Digital. Dx: I10. Daily As directed, 999 days/lifetime clonidine HCl 0.1 mg PO BID 30 days furosemide 20 mg PO DAILY 90 days meloxicam 15 mg PO DAILY 30 days nadolol 20 mg PO DAILY 30 days omeprazole 40 mg PO DAILY pramipexole 0.25 mg PO BEDTIME prednisone 40 mg (2 x 20 mg) PO DAILY 5 days simvastatin 20 mg PO DAILY spironolactone 100 mg PO QAM topiramate 50 mg PO DAILY varenicline 1 mg PO BID 12 weeks vitamin B complex ER (Complex B-100 tablet,extended release) 1 tab PO DAILY 90 days Tobacco use date assessed: 09/23/23 Dental Screening Dental Screen Date: 09/15/23 HPI HPI Comments History of Present Illness Details 58-year-old male with cirrhosis here tod ay for close f/u of acute on chronic bilateral lower extremity edema Since last office visit he has been taking the spironolactone 100 mg daily as directed. He has lost 9 lb since his appointment last week. Has had significant improvement in the edema of bilateral lower extremities. [facility] Medical History No pertinent past medical history Surgical History History of hip replacement History of esophagogastroduodenoscopy (EGD) H/O colonoscopy History of arthroscopy of right knee Family History Father Diabetes mellitus Mother HTN (hypertension) Brother No problems noted. Sister No problems noted. Sister No problems noted. Sister No problems noted. Social History Household Members: Friend(s) Housing: Apartment Alcohol intake: current Alcohol intake frequency: a few times a month Patient Tobacco Use Status: Current everyday Tobacco user Cigarette Packs Per Day: 0.26 Cigarettes Per Day: 6 Years Smoked: 35 e-Cigarette/Vaping Use: Never Used service: No Current occupational status: disabled Cognitive needs: No Hearing needs: No Vision needs: No Questionnaire Thrive Questionnaire Date Thrive assessed: 09/15/23 JOHN-7 AMB Questionnaire JOHN-7 Date JOHN - 7 assessed: 09/15/23 Source: Developed by Drs. Tulio Teixeira, Carolyn Thornton, Genaro Solorzano and colleagues, with an educational ping from [employer]. Review of Systems Const All systems reviewed & are unremarkable except as noted in HPI and below Physical exam (Primary Care) Vital Signs: Last Vital Signs Temp 97.4 F 09/23/23 09:49 Pulse 79 09/23/23 09:49 Resp 15 09/23/23 09:49 BP 128/60 09/23/23 09:49 Pulse Ox 99 09/23/23 09:49 Oxygen Delivery Method Room Air 09/23/23 09:49 BMI result Body Mass Index 28.9 Tobacco/Smoking Status: Tobacco use Status Tobacco use date assessed 09/23/23 09/23/23 09:55 Patient Tobacco Use Status Current everyday Tobacco 09/23/23 09:51 e-Cigarette/Vaping Use Never Used 09/23/23 09:51 Thrive Assessment: Date of Thrive Assessment Date Thrive assessed 09/15/23 09/23/23 09:51 Const Other: Awake alert oriented Regular rate and rhythm Lung sounds clear to auscultation bilat Protuberant abdomen consistent with ascites and cirrhosis Bilateral lower extremity with trace to +1 edema, right greater than left, skin intact, warm, hairless Assessment and Plan Assessment & Plan (1) Swelling of lower extremity: Code(s): M79.89 - Other specified soft tissue disorders (2) Cirrhosis: Code(s): K74.60 - Unspecified cirrhosis of liver Qualifiers: Hepatic cirrhosis type: alcoholic cirrhosis Ascites presence: with ascites Qualified Code(s): K70.31 - Alcoholic cirrhosis of liver with ascites Plan: This note is constructed using voice recognition software. While every effort has been made to ensure accuracy in scrap kettle tender, still errors may have been included Sometimes, these errors may affect the content or meaning of the given sentence . Total time spent caring for the patient today was 30 minutes. This includes time spent before the visit reviewing the chart, time spent during the visit, and time spent after the visit on documentation Medications: Refilled spironolactone 100 mg PO QAM 30 tabs 1RF Patient Instructions: Significant improvement with spironolactone 100 mg p.o. daily. Continue to take as directed. He is going in for a total knee replacement on Thursday. I have advised for him to follow up with his primary care provider in about 4 weeks to see if the spironolactone can be titrated for further benefit as he continues to have some edema of his bilateral lower extremities. Given that he is stable and feels better and is having surgery Thursday we will continue the dose as is for now. Advised to continue to weigh himself daily and report any weight gains greater than 3 lb in 24 hours or 5 lb in 1 week. Coding Level of Care Code Est Pt Level 4 (19310) Diagnoses Swelling of lower extremity M79.89 Alcoholic cirrhosis of liver with ascites K70.31 Hepatic cirrhosis type: alcoholic cirrhosis Ascites presence: with ascites
== END 2023-09-23 10:10 | disposition home or self-care (01) ==
PROVIDERS: PCP Family Medicine; Visit Provider Nurse Practitioner Family
DX: M79.89 Other specified soft tissue disorders (principal); K70.31 Alcoholic cirrhosis of liver with ascites
CPT/HCPCS: 99214

== ENCOUNTER 2023-10-08 14:23 | Outpatient (REF) | payer MEDICARE, SELFPAY ==
[2023-10-08 14:31] LABS: MANUAL DIFF FLAG NO
[2023-10-08 14:58] LABS: Basophils Absolute Auto 0.1 X10*3/uL (0.0-0.2); Eosinophils Absolute Auto 0.2 X10*3/uL (0.0-0.4); Eosinophils Percent Auto 4.6 % (0-4); Hematocrit 22.2 % (42.0-52.0); Hemoglobin 7.5 g/dl (14.0-18.0); Imm Gran Abs Auto 0.02 X10*3/uL (0.00-0.03); Imm Gran Pct Auto 0.4 % (0.0-0.4); Lymphocytes Absolute Auto 1.6 X10*3/uL (1.2-4.9); Lymphocytes Percent Auto 32.4 % (20-40); Mean Corpuscular HGB Conc 33.8 g/dl (31.0-36.0); Mean Corpuscular Hemoglobin 35.4 pg (27.0-33.0); Mean Corpuscular Volume 104.7 fL (80.0-98.0); Mean Platelet Volume 9.5 fL (9.4-12.4); Monocytes Absolute Auto 0.6 X10*3/uL (0.1-1.2); Monocytes Percent Auto 11.3 % (2-11); Neutrophils Absolute Auto 2.5 x10*3/uL (2.0-8.3); Neutrophils Percent Auto 50.3 % (45-73); Platelet Count 132 X10*3/uL (160-400); Red Blood Count 2.12 X10*6/uL (4.60-5.80); Red Cell Distribution Width 17.2 % (11.0-16.0)
[2023-10-08 15:29] LABS: Anion Gap 5 (12-20); Blood Urea Nitrogen 8 mg/dL (9-16); Calcium 7.7 mg/dL (8.4-10.2); Carbon Dioxide 24 mmol/L (22-29); Chloride 101 mmol/L (96-108); Cholesterol 80 mg/dL (<200); Estimated Glomerular Filt Rate > 60; Glucose Random 101 mg/dL (60-115); HDL Cholesterol 11 mg/dL (>40); LDL Cholesterol Calculated 56 mg/dL (<100); Potassium 4.2 mmol/L (3.3-5.1); Sodium 126 mmol/L (135-145); Triglycerides 66 mg/dL (<150)
[2023-10-08 15:31] LABS: Creatinine Urine 38.12 mg/dL; Microalbumin Urine < 5.0 mg/L
[2023-10-08 15:45] LABS: Free T4 (Free Thyroxine) 0.98 ng/dL (0.71-1.85); Thyroid Stimulating Hormone 4.17 uIU/mL (0.32-4.0)
[2023-10-08 15:52] LABS: Folate 8.9 ng/mL (> or = 4.0); Prostate Specific Antigen Scr 0.13 ng/mL (<0.05-4.0); Vitamin B12 > 2000 pg/mL (200-900)
== END 2023-10-08 14:24 | disposition home or self-care (01) ==
LOC: HO.HVNA 14:23
PROVIDERS: Visit Provider Family Medicine
DX: Z96.651 Presence of right artificial knee joint (principal); Z12.5 Encounter for screening for malignant neoplasm of prostate
CPT/HCPCS: 36415; 80048; 80061; 82043; 82570; 82607; 82746; 84153; 84439; 84443; 85025

== ENCOUNTER 2023-10-19 11:09 | Outpatient (REF) | payer MEDICARE, SELFPAY ==
[2023-10-19 12:25] LABS: Basophils Percent Auto 0.9 % (0-2); Eosinophils Absolute Auto 0.2 X10*3/uL (0.0-0.4); Eosinophils Percent Auto 4.8 % (0-4); Hematocrit 27.2 % (42.0-52.0); Imm Gran Abs Auto 0.02 X10*3/uL (0.00-0.03); Imm Gran Pct Auto 0.4 % (0.0-0.4); Lymphocytes Absolute Auto 1.3 X10*3/uL (1.2-4.9); Lymphocytes Percent Auto 27.8 % (20-40); MANUAL DIFF FLAG NO; Mean Corpuscular HGB Conc 33.1 g/dl (31.0-36.0); Mean Corpuscular Hemoglobin 34.1 pg (27.0-33.0); Mean Platelet Volume 9.3 fL (9.4-12.4); Monocytes Absolute Auto 0.4 X10*3/uL (0.1-1.2); Neutrophils Absolute Auto 2.7 x10*3/uL (2.0-8.3); Neutrophils Percent Auto 58.1 % (45-73); Platelet Count 148 X10*3/uL (160-400); Red Blood Count 2.64 X10*6/uL (4.60-5.80); Red Cell Distribution Width 15.9 % (11.0-16.0); White Blood Count 4.6 X10*3/uL (4.8-10.8)
[2023-10-19 13:18] LABS: Alanine Aminotransferase 35 U/L (0-40); Albumin Level 2.3 g/dL (3.5-5.0); Alkaline Phosphatase 100 U/L (39-117); Anion Gap 9 (12-20); Aspartate Amino Transferase 74 U/L (5-37); Bilirubin Total 2.5 mg/dL (0.0-1.0); Blood Urea Nitrogen 9 mg/dL (9-16); Calcium 8.3 mg/dL (8.4-10.2); Carbon Dioxide 22 mmol/L (22-29); Chloride 103 mmol/L (96-108); Cholesterol 82 mg/dL (<200); Estimated Glomerular Filt Rate > 60; Glucose Fasting 105 mg/dL (60-99); Glucose Random 106 mg/dL (60-115); HDL Cholesterol 16 mg/dL (>40); Iron 40 mcg/dL (45-160); LDL Cholesterol Calculated 55 mg/dL (<100); Percent Iron Saturation 16 % (15-50); Potassium 4.3 mmol/L (3.3-5.1); Sodium 130 mmol/L (135-145); Total Iron Binding Capacity 244 mcg/dL (228-428); Total Protein 6.8 g/dL (6.5-8.0); Triglycerides 57 mg/dL (<150); Unsaturated Iron Binding 204 ug/dL
[2023-10-19 13:46] LABS: Folate > 20.0 ng/mL (> or = 4.0); Vitamin B12 > 2000 pg/mL (200-900)
== END 2023-10-19 11:10 | disposition home or self-care (01) ==
LOC: HO.WFDLDS 11:09
PROVIDERS: Visit Provider Family Medicine
DX: Z00.00 Encounter for general adult medical examination without abnormal findings (principal); Z12.5 Encounter for screening for malignant neoplasm of prostate; D64.9 Anemia, unspecified; E53.8 Deficiency of other specified B group vitamins
CPT/HCPCS: 36415; 80048; 80053; 80061; 82607; 82746; 83540; 84153; 84443; 85025

== ENCOUNTER 2024-02-24 12:35 | Outpatient (AMB) | payer MEDICARE, SELFPAY ==
--- NOTE | 2024-02-24 12:40 | MHC.PC.OV ---
Vital Signs 02/24/24 12:58 Height 5 ft 10 in Weight 179 lb BMI 25.7 BP 112/50 L Blood Pressure Location Lt brachial Position Supine Respiration 16 Pulse 89 Pulse Source Pulse Oximeter Temp 97.7 F Temp Source Oral Pulse Oximetry (%) 98 Oxygen Delivery Method Room Air Intake Visit Reasons: Cirrhosis and RT leg issues Intake Note: patient here c/o Cirrhosis and RT leg issues Panel Maker Required: No Allergies No Known Allergies Allergy (Verified 02/24/24 13:20) Medication List - Last Reconciled 02/24/24 by Mariana Pike CNP amitriptyline 20 mg (2 x 10 mg) PO BEDTIME aspirin (Adult Low Dose Aspirin) 81 mg PO DAILY blood pressure monitor Automatic, Digital. Dx: I10. Daily As directed, 999 days/lifetime ferrous sulfate 325 mg PO DAILY 30 days folic acid 1 mg PO DAILY furosemide 40 mg PO DAILY lactulose 10 grams PO TID multivitamin with minerals 1 cap PO DAILY nadolol 20 mg PO DAILY 30 days omeprazole 20 mg PO DAILY polyethylene glycol 3350 (Miralax) 17 grams PO DAILY pramipexole 0.25 mg PO BEDTIME rifaximin (Xifaxan) 550 mg PO BID rifaximin (Xifaxan) 550 mg PO TID simvastatin 20 mg PO DAILY spironolactone 50 mg PO QAM tamsulosin 0.4 mg PO BEDTIME thiamine HCl (vitamin B1) 100 mg PO BID topiramate 50 mg PO DAILY Tobacco use date assessed: 09/23/23 Dental Screening Dental Screen Date: 09/15/23 HPI HPI Comments History of Present Illness Details 59-year-old male, accompanied by his sister/health care proxy, presents for a follow up visit. He had right total knee replacement on 09/28/2023 at [facility] and returned home a few days later. He was admitted at [facility] on 11/05/2023 for severe right knee pain and swelling. The right knee was found to be severely infected. The knee was removed and infection treated. He was also diagnosed with hepatic encephalopathy. He was discharged from [facility] to [facility] on 12/10. His sister discharged him from the [facility] on 02/16/2024 because he was not getting the care he needed. The patient lives with his girlfriend who has been helping with is care. His sister requests VNA services, including alf, home health aide, and physical therapy. He reports persistent pain to his right knee. He notes that his pain is currently 10/10. He notes nonweightbearing of his right leg. He was brought to this office visit via EMS in the stretcher He is followed by [facility] Medical History No pertinent past medical history Surgical History History of hip replacement History of esophagogastroduodenoscopy (EGD) H/O colonoscopy History of arthroscopy of right knee Family History Father Diabetes mellitus Mother HTN (hypertension) Brother No problems noted. Sister No problems noted. Sister No problems noted. Sister No problems noted. Social History Household Members: Friend(s) Housing: Apartment Alcohol intake: current Alcohol intake frequency: a few times a month Patient Tobacco Use Status: Current everyday Tobacco user Cigarette Packs Per Day: 0.26 Cigarettes Per Day: 6 Years Smoked: 35 e-Cigarette/Vaping Use: Never Used service: No Current occupational status: disabled Cognitive needs: No Hearing needs: No Vision needs: No Questionnaire PHQ-9 Over the last 2 weeks, how often have you been bothered by any of the following problems? 1. Little interest or pleasure in doing things: not at all 2. Feeling down, depressed, or hopeless: not at all 3. Trouble falling or staying asleep, or sleeping too much: not at all 4. Feeling tired or having little energy: not at all 5. Poor appetite or overeating: not at all 6. Feeling bad about yourself - or that you are a failure or have let yourself or your family down: not at all 7. Trouble concentrating on things, such as reading the newspaper or watching television: not at all 8. Moving or speaking so slowly that other people could have noticed. Or the opposite - being so fidgety or restless that you have been moving around a lot more than usual: not at all 9. Thoughts that you would be better off or of hurting yourself in some way: not at all Total score: 0 Depression Screening Interpretation: Negative Depression Screening Done: Yes 41389 - PHQ-9 Billing: Yes Source: Developed by Drs. Tulio Teixeira, Carolyn Thornton, Genaro Solorzano and colleagues, with an educational ping from [employer] Thrive Questionnaire Date Thrive assessed: 02/24/24 I am a: Parent/Caregiver What is your living situation today?: I have a steady place to live Within the past 12 months, did the food you bought not last and you didn't have the money to get more?: Never true Within the past 12 months, did you worry whether your food would run out before you got money to buy more?: Never true Do you have trouble paying for medicines?: No Do you have trouble getting transportation to medical appointments?: No Do you have trouble paying your heating and electricity bill?: No Do you have trouble taking care of your child, family member or friend?: No Do you have trouble with day-to-day activities such as bathing, preparing meals, shopping, managing finances, etc.?: Yes Are you currently unemployed and looking for a job?: No Are you interested in more education?: No Please select the resources that you would like help with: Daily support Currently or been in a relationship where the following occur: No concerns reported THRIVE Score: 0 AUDIT C Alcohol Use Questionnaire (AUDIT-C) 1. How often do you have a drink containing alcohol?: Never Total Score: 0 JOHN-7 AMB Questionnaire JOHN-7 Date JOHN - 7 assessed: 02/24/24 Feeling nervous, anxious, or on edge: 0 = Not at all Not being able to stop or control worryin = Not at all Worrying too much about different things: 0 = Not at all Trouble relaxin = Not at all Being so restless that it is hard to sit still: 0 = Not at all Becoming easily annoyed or irritable: 0 = Not at all Feeling afraid as if something awful might happen: 0 = Not at all Total JOHN-7 score (0-4 normal; 5-9 mild; 10-14 moderate; 15-21 severe): 0 Source: Developed by Drs. Tulio Teixeira, Carolyn Thornton, Genaro Solorzano and colleagues, with an educational ping from [employer] JOHN-7 Assessment Billing JOHN-7 Assessment Tool: JOHN-7 Assessment 51099 Review of Systems Const Details: Const Denies chills, Denies fatigue, Denies fever(s), Denies headache(s) and Denies weakness ENT Denies dizziness and Denies headache(s) Card Denies chest pain, Denies lightheadedness, Denies dyspnea and Denies other (Palpitations) Resp Denies cough, Denies dyspnea, Denies wheezing and Denies other ( shortness of breath) GI Denies abdominal pain, Denies melena, Denies hematochezia, Denies change in bowel habits, Denies dyspepsia and Denies nausea Denies hematuria and Denies dysuria Musc Reports nonweightbearing of right leg, Denies myalgias, Denies arthralgias, Denies numbness and Denies tingling Skin/Breast Denies rash, Denies unusual bruising and Denies wounds Neuro Reports nonweightbearing of right leg, Denies dizziness, Denies headache(s), Denies memory loss, Denies numbness, Denies Sensory deficit (Neuro), Denies tingling and Denies weakness Psych Denies anxiety, Denies depression, Denies memory loss Endo Denies cold intolerance, Denies fatigue, Denies heat intolerance, Denies polydipsia and Denies polyuria Aller/Immun Denies wheezing Physical exam (Primary Care) Vital Signs: Last Vital Signs Temp 97.7 F 02/24/24 12:58 Pulse 89 02/24/24 12:58 Resp 16 02/24/24 12:58 BP 112/50 L 02/24/24 12:58 Pulse Ox 98 02/24/24 12:58 Oxygen Delivery Method Room Air 02/24/24 12:58 BMI result Body Mass Index 25.7 Tobacco/Smoking Status: Tobacco use Status Tobacco use date assessed 09/23/23 02/24/24 12:43 Patient Tobacco Use Status Current everyday Tobacco 02/24/24 12:43 e-Cigarette/Vaping Use Never Used 02/24/24 12:43 PHQ-9: PHQ-9 Score PHQ-9: Total score 0 02/24/24 13:01 Depression Screening Interpretation: Negative Thrive Assessment: Date of Thrive Assessment Date Thrive assessed 02/24/24 02/24/24 13:00 Currently or been in a relationship where the following occur: No concerns reported Const Other: General: no acute distress and well developed Nutritional Appearance: well nourished Orientation/consciousness: patient oriented x3 [facility] Head: Yes normocephalic and Yes atraumatic Eyes General: appearance normal, both eyes and all related structures Pupils: Equal, round and reactive pupils present EOM: EOMs intact bilaterally Resp Effort & Inspection: normal respiratory effort Auscultation: clear to auscultation bilaterally Cardio Rate: regular rate Rhythm: regular rhythm Heart sounds: S1 normal heart sound present, S2 normal heart sound present, no gallops, no murmurs and no rubs GI Palpation (GI): No Abdominal aortic bruit present, Soft to palpation, nontender, No hepatosplenomegaly present and No Rebound tenderness present Auscultation: normal bowel sounds General: Yes no CVA tenderness Back/Spine/Pelvis Back: no CVA tenderness Extrem General: Yes normal to inspection, and No calf tenderness. Mild swelling noted to the right knee and lower leg; no overt infection Skin General: warm and dry. Normal skin color. Normal skin turgor Neuro General: patient oriented x3, immobile and no focal neuro deficit Cranial nerves: Yes Equal, round and reactive pupils present Cognition (Neuro): normal cognition Gait exam (Neuro): Immobile Sensory Exam: No Sensory deficit (Neuro) Psych Appearance: grossly normal Affect: normal affect Attitude: cooperative Thought process: Normal thought process present Coding Level of Care Code Est Pt Level 5 (36194) Diagnoses Right leg pain M79.604 Additional Codes JOHN-7 Assessment Billing - JOHN-7 Assessment Tool: JOHN-7 Assessment 45351 ([id number]) Assessment & Plan Assessment & Plan (1) Right leg pain: Code(s): M79.604 - Pain in right leg Category: Medical Plan: He had total knee replacement of the right knee there was later complicated by infection. The knee was removed and infection treated. He was discharged to a SNF where his sister discharge over a week ago due to poor care he was receiving. Patient reports persistent pain to his right knee. His pain is currently 10/10. He is nonweightbearing of his right leg. He was brought to this office visit via EMS in the stretcher. Mild swelling noted to the right knee and lower leg; no overt infection Medications reconciled and refill as requested by the patient's healthcare proxy Advised to follow-up with Ortho as planned I consulted with his PCP, Dr. Espinal who would place VNA orders and notify the patient when to follow-up with him Verbalized understanding and agreed with the treatment plan Medications: New rifaximin (Xifaxan) 550 mg PO BID 30 days 60 tabs 1RF Mariana Pike CNP lactulose 30 grams (45 mL) PO TID 30 days 4,050 mL 1RF Mariana Pike CNP tamsulosin 0.4 mg PO BEDTIME 30 days 30 caps 3RF Mariana Pike CNP Changed From omeprazole 40 mg PO DAILY 90 caps 1RF To omeprazole 20 mg PO DAILY Ryan Espinal MD From spironolactone 100 mg PO QAM 30 tabs 1RF To spironolactone 50 mg PO QAM Lizette Alford, [employer]- From furosemide 40 mg PO DAILY To furosemide 40 mg (2 x 20 mg) PO DAILY 30 days 60 tabs 1RF Mariana Pike CNP Refilled nadolol 20 mg PO DAILY 30 days 30 tabs 1RF Mariana Pike CNP topiramate 50 mg PO DAILY 90 tabs 2RF Mariana Pike CNP
[2024-02-24 12:58] VITALS: BP 112/50; PULSE 89; RESP 16; TEMP 36.5; O2SAT 98; BMI 25.7
== END 2024-02-24 13:54 | disposition home or self-care (01) ==
LOC: HO.HMCFM 12:36
PROVIDERS: PCP Family Medicine; Visit Provider Nurse Practitioner Family
DX: M79.604 Pain in right leg (principal); Z96.651 Presence of right artificial knee joint

== ENCOUNTER → 2024-02-24 12:35 | Outpatient (BNVA) | payer MEDICARE, SELFPAY | PROVIDERS: PCP Family Medicine; Visit Provider Nurse Practitioner Family | DX: M79.604 Pain in right leg (principal) | CPT/HCPCS: 96127; 99212 ==

== ENCOUNTER 2024-03-31 10:04 | Outpatient (AMB) | payer MEDICARE, SELFPAY ==
--- NOTE | 2024-03-31 10:14 | A.OFFPC_ITS ---
Vital Signs 03/31/24 10:25 BP 126/60 Blood Pressure Location Rt brachial Position Sitting Respiration 16 Pulse 102 H Pulse Source Pulse Oximeter Temp 97.6 F Temp Source Oral Pulse Oximetry (%) 99 Oxygen Delivery Method Room Air Intake Visit Reasons: fu knee resection Intake Note: f/u knee resection bilateral knee swelling Allergies No Known Allergies Allergy (Verified 03/31/24 10:15) Medication List - Last Reconciled 03/31/24 by Ryan Espinal MD amitriptyline 20 mg (2 x 10 mg) PO BEDTIME aspirin (Adult Low Dose Aspirin) 81 mg PO DAILY blood pressure monitor Automatic, Digital. Dx: I10. Daily As directed, 999 days/lifetime ferrous sulfate 325 mg PO DAILY 30 days folic acid 1 mg PO DAILY furosemide 40 mg (2 x 20 mg) PO DAILY 30 days lactulose 30 grams (45 mL) PO TID 90 days multivitamin with minerals 1 cap PO DAILY nadolol 20 mg PO DAILY 30 days omeprazole 20 mg PO DAILY pramipexole 0.25 mg PO BEDTIME rifaximin (Xifaxan) 550 mg PO BID 30 days simvastatin 20 mg PO DAILY spironolactone 50 mg PO QAM tamsulosin 0.4 mg PO BEDTIME 30 days thiamine HCl (vitamin B1) 100 mg PO BID topiramate 50 mg PO DAILY Tobacco use date assessed: 09/23/23 Dental Screening Dental Screen Date: 09/15/23 HPI fu knee resection HPI Details 59 y/o male presents to f/u knee resecti on. They note L leg and knee pain/swelling in addition to his R leg pain. They report pain has been worsening recently. Pt prescribed lactulose for hepatic encephalopathy. [facility] Medical History No pertinent past medical history Surgical History History of hip replacement History of esophagogastroduodenoscopy (EGD) H/O colonoscopy History of arthroscopy of right knee Family History Father Diabetes mellitus Mother HTN (hypertension) Brother No problems noted. Sister No problems noted. Sister No problems noted. Sister No problems noted. Social History Housing: Apartment Alcohol intake: current Alcohol intake frequency: a few times a month Patient Tobacco Use Status: Current everyday Tobacco user Cigarette Packs Per Day: 0.26 Cigarettes Per Day: 6 Years Smoked: 35 e-Cigarette/Vaping Use: Never Used service: No Current occupational status: disabled Cognitive needs: No Hearing needs: No Vision needs: No Questionnaire Thrive Questionnaire Date Thrive assessed: 02/24/24 JOHN-7 AMB Questionnaire JOHN-7 Date JOHN - 7 assessed: 02/24/24 Source: Developed by Drs. Tulio Teixeira, Carolyn Thornton, Genaro Solorzano and colleagues, with an educational ping from [employer]. Review of Systems Const Denies chills, Denies fatigue, Denies fever(s), Denies headache(s) and Denies weakness ENT Denies dizziness and Denies headache(s) Card Denies dyspnea Resp Denies cough, Denies dyspnea, Denies wheezing and Denies other (shortness of breath) Musc Details: Bilateral leg pain Denies numbness and Denies tingling Neuro Denies dizziness, Denies headache(s), Denies numbness, Denies tingling and Denies weakness Psych Denies anxiety and Denies depression Endo Denies fatigue Aller/Immun Denies wheezing Physical exam (Primary Care) Vital Signs: Last Vital Signs Temp 97.6 F 03/31/24 10:25 Pulse 102 H 03/31/24 10:25 Resp 16 03/31/24 10:25 BP 126/60 03/31/24 10:25 Pulse Ox 99 03/31/24 10:25 Oxygen Delivery Method Room Air 03/31/24 10:25 Tobacco/Smoking Status: Tobacco use Status Tobacco use date assessed 09/23/23 03/31/24 10:21 Patient Tobacco Use Status Current everyday Tobacco 03/31/24 10:21 e-Cigarette/Vaping Use Never Used 03/31/24 10:21 Thrive Assessment: Date of Thrive Assessment Date Thrive assessed 02/24/24 03/31/24 10:21 Const General: well developed; No acute distress Nutritional Appearance: well nourished Orientation/consciousness: patient oriented x3 HENMT Head: Yes normocephalic and Yes atraumatic Eyes General: appearance normal, both eyes and all related structures Pupils: Equal, round and reactive pupils present EOM: EOMs intact bilaterally Resp Effort & Inspection: normal respiratory effort Neuro General: patient oriented x3 and No gait normal Cranial nerves: Yes Equal, round and reactive pupils present Gait exam (Neuro): gait abnormal and Assisted gait required Gait assisted method: wheelchair bound Extrem Other: RLE edema, erythema and increased tenderness Psych Affect: normal affect Coding Level of Care Code Est Pt Level 4 (48613) Diagnoses Left leg swelling M79.89 Right leg pain M79.604 Hepatic encephalopathy K76.82 Assessment & Plan Assessment & Plan (1) Left leg swelling: Code(s): M79.89 - Other specified soft tissue disorders Category: Medical Plan: Bilateral?lower?extremity?edema Patient?has?history?of?lower?extremity?edema?and?also?pitting?edema?secondary?to ?cirrhosis?of?the?liver 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 He?is?taking?furosemide?and?also?spironolactone. Take?spironolactone?as?prescribed.??Will?increase?furosemide?from?40?mg?daily?to ?60?mg?daily?temporarily?for?this?week. Elevate?legs Will?follow-up?next?week (2) Right leg pain: Code(s): M79.604 - Pain in right leg Category: Medical Plan: With?right?lower?extremity?edema,?erythema?and?increased?tenderness.??Patient?vera d?right?total?knee?replacement ?and?then?infection?with?subsequent?resection?of?prosthetic?knee. Concern?for?cellulitis?surgical?wound Start?cephalexin. Close Follow-up?next?week (3) Hepatic encephalopathy: Code(s): K76.82 - Hepatic encephalopathy Category: Medical Plan: Patient?is?prescribed?lactulose. Family?members?as?he?seems?to?forget?to?take?some?of?his?medications?and?she?josephine pects?that?he?is?not?taking?3?times?a?day?as?prescribed. Patient?is?having?some?difficulties?with?cognition?today Checking?ammonia Take?lactulose?3?times?a?day; patient?also?had?hypokalemia?when?last?checked?in?the?hospital.??May?be?secondar y?to?lactulose.??Checking?CMP?including?potassium Had?ordered?VNA?for?patient Plan Tyson?had?been?seen?by?VNA?which?signed?off?last?week. He?still?has?physical?therapy?at?home. Again?offered?a?[employer]?but ?patient?declines?this.??Nurse?navigator?today?spoke?to?him?about?[employer]?and?servic es?as?well?but?is?still?adamant?does?not?want?these?services?at?this?time. Can?let?us?know?if?he?changes?mind Orders: Orders Ammonia Today K76.82 - Hepatic encephalopathy Comprehensive Met. Panel Today K76.82 - Hepatic encephalopathy Complete Blood Count Auto Diff Today T84.018A - Broken internal joint prosthesis, other site, initial encounter, Z00.00 - Encounter for general adult medical examination without abnormal findings, Z96.659 - Presence of unspecified artificial knee joint Medications: New furosemide 20 mg PO DAILY 7 days 7 tabs 0RF cephalexin 500 mg PO Q12H 10 days 20 caps 0RF T84.018A - Broken internal joint prosthesis, other site, initial encounter, Z96.659 - Presence of unspecified artificial knee joint
[2024-03-31 10:25] VITALS: BP 126/60; PULSE 102; RESP 16; TEMP 36.4; O2SAT 99
== END 2024-03-31 11:58 | disposition home or self-care (01) ==
LOC: HO.HMCFM 10:05
PROVIDERS: PCP Family Medicine; Visit Provider Family Medicine
DX: M79.89 Other specified soft tissue disorders (principal); M79.604 Pain in right leg; K76.82 Hepatic encephalopathy

== ENCOUNTER 2024-03-31 11:08 | Outpatient (REF) | payer MEDICARE, SELFPAY | END 2024-03-31 11:09 | disposition home or self-care (01) | LOC: HO.WFDLDS 11:08 | PROVIDERS: Visit Provider Family Medicine | DX: M79.89 Other specified soft tissue disorders (principal); M79.604 Pain in right leg; K76.82 Hepatic encephalopathy | CPT/HCPCS: 99212 ==

== ENCOUNTER 2024-04-08 12:49 | Outpatient (AMB) | payer MEDICARE, SELFPAY ==
--- NOTE | 2024-04-08 12:59 | A.OFFPC_ITS ---
Vital Signs 04/08/24 13:13 BP 120/64 Blood Pressure Location Rt brachial Position Sitting Pulse 79 Pulse Source Pulse Oximeter Pulse Oximetry (%) 96 Oxygen Delivery Method Room Air Intake Visit Reasons: close follow up cellulitis right leg Intake Note: Follow up cellulitis right leg. Had labs done at [place], results not scanned in yet. Scale Reclamation Tender Required: No Allergies No Known Allergies Allergy (Verified 04/08/24 13:00) Medication List - Last Reconciled 04/08/24 by Ryan Espinal MD amitriptyline 20 mg (2 x 10 mg) PO BEDTIME aspirin (Adult Low Dose Aspirin) 81 mg PO DAILY blood pressure monitor Automatic, Digital. Dx: I10. Daily As directed, 999 days/lifetime cephalexin 500 mg PO Q12H 10 days ferrous sulfate 325 mg PO DAILY 30 days folic acid 1 mg PO DAILY furosemide 40 mg (2 x 20 mg) PO DAILY 30 days lactulose 30 grams (45 mL) PO TID 90 days multivitamin with minerals 1 cap PO DAILY nadolol 20 mg PO DAILY 30 days omeprazole 20 mg PO DAILY polyethylene glycol 3350 (Miralax) 17 grams PO DAILY pramipexole 0.25 mg PO BEDTIME pramipexole 0.25 mg PO DAILY rifaximin (Xifaxan) 550 mg PO BID 30 days simvastatin 20 mg PO DAILY spironolactone 50 mg PO QAM tamsulosin 0.4 mg PO BEDTIME 30 days thiamine HCl (vitamin B1) 100 mg PO BID topiramate 50 mg PO DAILY Tobacco use date assessed: 09/23/23 Dental Screening Dental Screen Date: 09/15/23 HPI close follow up cellulitis right leg HPI Details 59 y/o male presents to f/u cellulitis a t R leg and lower extremity edema/volume overload in pt with cirrhosis. Had increased furosemide x7 days due to LE edema. They note redness of legs improved. They had seen orthopedics and they note they had tried to drain some fluids but were unsuccessful. They deny any fevers. His last cephalexin dose was Thursday morning. Continues to elevate legs. Has been watching salt/sodium in his diet. Takes lactulose regularly. [facility] Medical History No pertinent past medical history Surgical History History of hip replacement History of esophagogastroduodenoscopy (EGD) H/O colonoscopy History of arthroscopy of right knee Family History Father Diabetes mellitus Mother HTN (hypertension) Brother No problems noted. Sister No problems noted. Sister No problems noted. Sister No problems noted. Social History Household Members: Friend(s) Housing: Apartment Alcohol intake: current Alcohol intake frequency: a few times a month Patient Tobacco Use Status: Current everyday Tobacco user Cigarette Packs Per Day: 0.26 Cigarettes Per Day: 6 Years Smoked: 35 e-Cigarette/Vaping Use: Never Used service: No Current occupational status: disabled Cognitive needs: No Hearing needs: No Vision needs: No Questionnaire Thrive Questionnaire Date Thrive assessed: 02/24/24 JOHN-7 AMB Questionnaire JOHN-7 Date JOHN - 7 assessed: 02/24/24 Source: Developed by Drs. Tulio Teixeira, Carolyn Thornton, Genaro Solorzano and colleagues, with an educational ping from [employer]. Review of Systems Const Denies chills, Denies fatigue, Denies fever(s), Denies headache(s) and Denies weakness ENT Denies dizziness and Denies headache(s) Card Denies dyspnea Resp Denies cough, Denies dyspnea, Denies wheezing and Denies other (shortness of breath) Musc Denies numbness and Denies tingling Neuro Denies dizziness, Denies headache(s), Denies numbness, Denies tingling and Denies weakness Psych Denies anxiety and Denies depression Endo Denies fatigue Aller/Immun Denies wheezing Physical exam (Primary Care) Vital Signs: Last Vital Signs Pulse 79 04/08/24 13:13 BP 120/64 04/08/24 13:13 Pulse Ox 96 04/08/24 13:13 Oxygen Delivery Method Room Air 04/08/24 13:13 Tobacco/Smoking Status: Tobacco use Status Tobacco use date assessed 09/23/23 04/08/24 13:06 Patient Tobacco Use Status Current everyday Tobacco 04/08/24 13:06 e-Cigarette/Vaping Use Never Used 04/08/24 13:06 Thrive Assessment: Date of Thrive Assessment Date Thrive assessed 02/24/24 04/08/24 13:06 Const General: well developed; No acute distress Nutritional Appearance: well nourished Orientation/consciousness: patient oriented x3 [facility] Head: Yes normocephalic and Yes atraumatic Eyes General: appearance normal, both eyes and all related structures Pupils: Equal, round and reactive pupils present EOM: EOMs intact bilaterally Resp Effort & Inspection: normal respiratory effort Auscultation: clear to auscultation bilaterally Cardio Rate: regular rate Rhythm: regular rhythm Heart sounds: S1 normal heart sound present, S2 normal heart sound present, no gallops, no murmurs and no rubs Neuro General: patient oriented x3 and gait normal Cranial nerves: Yes Equal, round and reactive pupils present Psych Affect: normal affect Coding Level of Care Code Est Pt Level 4 (00245) Diagnoses Right leg pain M79.604 Swelling of lower extremity M79.89 Alcoholic cirrhosis of liver with ascites K70.31 Ascites presence: with ascites Hepatic cirrhosis type: alcoholic cirrhosis Hepatic encephalopathy K76.82 Hypokalemia E87.6 Anemia D64.9 Assessment & Plan Assessment & Plan (1) Right leg pain: Code(s): M79.604 - Pain in right leg Category: Medical Plan: Ongoing?right?leg?swelling?and?erythema Had?started?him?on?cephalexin?for?concern?of?cellulitis?or?abscess. Remains?on?medication.??Redness?is?somewhat?decreased?and?swelling?has?decreased ?as?well. His?orthopedic?specialist?had?tried I&D but?was?unsuccessful?and?he?an?appointment?interventional?radiology?to?attempt?t his?on?Thursday. Continue?antibiotic?until?finished Will?go?to?individual?radiology?as?above Follow-up?with?ortho Call?or?return?to?office?if?any?new?or?concerning?problems?or?not?improving. (2) Swelling of lower extremity: Code(s): M79.89 - Other specified soft tissue disorders Category: Medical Plan: Patient?also?has?significant?lower?extremity?edema?secondary?to cirrhosis He?is?on?Lasix?lactulose He?is?elevating?his?legs?and?I?had?temporarily?increase?his?Lasix.??This?has?imp roved?swelling?though?he?still?has?significant?swelling. Continue?current?regimen (3) Cirrhosis: Code(s): K74.60 - Unspecified cirrhosis of liver Category: Medical Qualifiers: Ascites presence: with ascites Hepatic cirrhosis type: alcoholic cirrhosis Qualified Code(s): K70.31 - Alcoholic cirrhosis of liver with ascites Plan: Currently stable (4) Hepatic encephalopathy: Code(s): K76.82 - Hepatic encephalopathy Category: Medical Plan: Patient?is?taking?lactulose?consistently?now.??Mental?status?improved?to?baselin e?and?quite?coherent?today. Continue?lactulose?as?prescribed (5) Hypokalemia: Code(s): E87.6 - Hypokalemia Category: Medical Plan: Recent?hypokalemia?and?patient?is?on?furosemide?as?well?lactulose. And?ordered?recheck?of?his?potassium?level.??Patient?went?to?[facility]. Did?not?receive?lab?work?results. ?Ask?office?st aff?to?obtain?lab?work?does?not?seem?to?results?yet. Will?ask?office?staff?to?expedite?results.??Need?results?soon?possible (6) Anemia: Code(s): D64.9 - Anemia, unspecified Category: Medical Plan: As?above,?ordered?labs?and?I?do?not?have?these?available. Will?try?to?get?them?as?soon?as?possible?and?call?patient?if?action?is?required. Medications: Refilled nadolol 20 mg PO DAILY 30 tabs 1RF 30 days
[2024-04-08 13:13] VITALS: BP 120/64; PULSE 79; O2SAT 96
== END 2024-04-08 13:44 | disposition home or self-care (01) ==
LOC: HO.HMCFM 12:49
PROVIDERS: PCP Family Medicine; Visit Provider Family Medicine
DX: M79.604 Pain in right leg (principal); M79.89 Other specified soft tissue disorders; K70.31 Alcoholic cirrhosis of liver with ascites; K76.82 Hepatic encephalopathy; E87.6 Hypokalemia; D64.9 Anemia, unspecified

== ENCOUNTER → 2024-04-08 12:49 | Outpatient (BNVA) | payer MEDICARE, SELFPAY | PROVIDERS: PCP Family Medicine; Visit Provider Family Medicine | DX: M79.604 Pain in right leg (principal); M79.89 Other specified soft tissue disorders; K70.31 Alcoholic cirrhosis of liver with ascites; K76.82 Hepatic encephalopathy; E87.6 Hypokalemia; D64.9 Anemia, unspecified | CPT/HCPCS: 99212 ==

== ENCOUNTER 2025-01-10 15:44 | Outpatient (AMB) | payer MEDICARE, SELFPAY ==
--- NOTE | 2025-01-10 15:49 | A.OFFPC_ITS ---
Vital Signs 01/10/25 15:58 Height 5 ft 10 in Weight 195 lb 4 oz BMI 28.0 BP 120/68 Blood Pressure Location Rt brachial Position Sitting Respiration 16 Pulse 91 Pulse Source Pulse Oximeter Temp 98.6 F Temp Source Temporal Artery Scan Pulse Oximetry (%) 96 Oxygen Delivery Method Room Air Intake Visit Reasons: Dermatology Referral req /f/u LE swelling Intake Note: Domenic presents in the office today to follow up to right leg swelling Allergies No Known Allergies Allergy (Verified 01/10/25 15:54) Tobacco use date assessed: 01/10/25 Dental Screening Dental Screen Date: 01/10/25 Did you have a dental visit in the last 12 months?: No Did you have a dental problem in the last 6 months where you did not have access to dental care?: No Was dental information given to patient?: Patient declined HPI Dermatology Referral req /f/u LE swelling 2 HPI Details 59 y/o male presents to f/u chronic cond itions. 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 Ongoing R knee swelling/redness. Pt notes he is unsure what medications he is currently on. [facility] Medical History No pertinent past medical history Surgical History History of hip replacement History of esophagogastroduodenoscopy (EGD) H/O colonoscopy History of arthroscopy of right knee Family History Father Diabetes mellitus Mother HTN (hypertension) Brother No problems noted. Sister No problems noted. Sister No problems noted. Sister No problems noted. Social History (Updated 01/10/25 @ 15:58 by Nathalie Hale CMA) Household Members: Friend(s) Housing: Apartment Alcohol intake: current Alcohol intake frequency: a few times a month Patient Tobacco Use Status: Current everyday Tobacco user Cigarette Packs Per Day: 0.26 Cigarettes Per Day: 6 Years Smoked: 35 e-Cigarette/Vaping Use: Never Used Second Hand Smoke Exposure: No service: No Current occupational status: disabled Cognitive needs: No Hearing needs: No Vision needs: No Questionnaire Thrive Questionnaire Date Thrive assessed: 01/05/25 I am a: Patient What is your living situation today?: I have a steady place to live Within the past 12 months, did the food you bought not last and you didn't have the money to get more?: Never true Within the past 12 months, did you worry whether your food would run out before you got money to buy more?: Sometimes True Do you have trouble paying for medicines?: No Do you have trouble getting transportation to medical appointments?: Yes Do you have trouble paying your heating and electricity bill?: Yes Do you have trouble taking care of your child, family member or friend?: No Do you have trouble with day-to-day activities such as bathing, preparing meals, shopping, managing finances, etc.?: No Are you currently unemployed and looking for a job?: No Are you interested in more education?: No Please select the resources that you would like help with: Daily support Currently or been in a relationship where the following occur: No concerns reported THRIVE Score: 3 AUDIT C Alcohol Use Questionnaire (AUDIT-C) 1. How often do you have a drink containing alcohol?: Monthly or less 2. How many drinks containing alcohol do you have on a typical day when you are drinking?: 1 or 2 3. How often do you have six or more drinks on one occasion?: Never Total Score: 1 JOHN-7 AMB Questionnaire JOHN-7 Date JOHN - 7 assessed: 02/24/24 Feeling nervous, anxious, or on edge: 1 = Several days Not being able to stop or control worryin = Several days Worrying too much about different things: 1 = Several days Trouble relaxin = Nearly every day Being so restless that it is hard to sit still: 3 = Nearly every day Becoming easily annoyed or irritable: 1 = Several days Feeling afraid as if something awful might happen: 0 = Not at all Total JOHN-7 score (0-4 normal; 5-9 mild; 10-14 moderate; 15-21 severe): 10 Source: Developed by Drs. Tulio Teixeira, Carolyn Thornton, Genaro Solorzano and colleagues, with an educational ping from [employer]. Review of Systems Const Denies chills, Denies fatigue, Denies fever(s), Denies headache(s) and Denies weakness ENT Denies dizziness and Denies headache(s) Card Denies dyspnea Resp Denies cough, Denies dyspnea, Denies wheezing and Denies other (shortness of breath) Musc Denies numbness and Denies tingling Neuro Denies dizziness, Denies headache(s), Denies numbness, Denies tingling and Denies weakness Psych Denies anxiety and Denies depression Endo Denies fatigue Aller/Immun Denies wheezing Physical exam (Primary Care) Vital Signs: Last Vital Signs Temp 98.6 F 01/10/25 15:58 Pulse 91 01/10/25 15:58 Resp 16 01/10/25 15:58 BP 120/68 01/10/25 15:58 Pulse Ox 96 01/10/25 15:58 Oxygen Delivery Method Room Air 01/10/25 15:58 BMI result Body Mass Index 28.0 Tobacco/Smoking Status: Tobacco use Status Tobacco use date assessed 01/10/25 01/10/25 16:00 Patient Tobacco Use Status Current everyday Tobacco 01/10/25 15:58 e-Cigarette/Vaping Use Never Used 01/10/25 15:58 Thrive Assessment: Date of Thrive Assessment Date Thrive assessed 01/05/25 01/10/25 15:50 Currently or been in a relationship where the following occur: No concerns reported Const General: well developed; No acute distress Nutritional Appearance: well nourished Orientation/consciousness: patient oriented x3 HENMT Head: Yes normocephalic and Yes atraumatic Eyes General: appearance normal, both eyes and all related structures Pupils: Equal, round and reactive pupils present EOM: EOMs intact bilaterally Resp Effort & Inspection: normal respiratory effort Neuro General: patient oriented x3 and gait normal Cranial nerves: Yes Equal, round and reactive pupils present Psych Affect: normal affect Coding Level of Care Code Est Pt Level 5 (08177) Diagnoses Cellulitis of skin L03.90 Swelling of lower extremity M79.89 Stasis dermatitis I87.2 Venous insufficiency I87.2 Failure of total knee arthroplasty T84.018A; Z96.653 Assessment & Plan Assessment & Plan (1) Cellulitis of skin: Code(s): L03.90 - Cellulitis, unspecified Category: Medical (2) Swelling of lower extremity: Code(s): M79.89 - Other specified soft tissue disorders Category: Medical (3) Stasis dermatitis: Code(s): I87.2 - Venous insufficiency (chronic) (peripheral) Category: Medical (4) Venous insufficiency: Code(s): I87.2 - Venous insufficiency (chronic) (peripheral) Category: Medical (5) Failure of total knee arthroplasty: Code(s): T84.018A - Broken internal joint prosthesis, other site, initial encounter; Z96.659 - Presence of unspecified artificial knee joint Category: Medical Plan: History of right total knee arthroplasty with ultimate removal of hardware and placement of spacer discs. A knee is essentially fused. He appears to be on a prophylactic dose of doxycycline now - patient is uncertain what his medication is He will call with medication list Follow-up with ortho as recommended Continue cane Plan Patient has swelling of right calf and brumfield and erythema with warmth and itchiness Appears to be venous stasis dermatitis with a superimposed cellulitis Will have him start cephalexin Elevate leg Continue furosemide and I have sent a refill Watch salt and sodium in diet Will follow-up cellulitis in 1 week Referring him to Dermatology for stasis dermatitis - he already has a progressive care unit registered nurse and call to let us know who he would like to be referred to. Also has some venous insufficiency and likely some lymphedema Referring him to vascular surgery. Orders: Referrals Vascular Surgery Referral I87.2 - Venous insufficiency (chronic) (peripheral), I89.0 - Lymphedema, not elsewhere classified Medications: Refilled furosemide 40 mg (2 x 20 mg) PO DAILY 60 tabs 2RF 30 days cephalexin 500 mg PO Q12H 20 caps 0RF 10 days T84.018A - Broken internal joint prosthesis, other site, initial encounter, Z96.659 - Presence of unspecified artificial knee joint
[2025-01-10 15:58] VITALS: BP 120/68; PULSE 91; RESP 16; TEMP 37; O2SAT 96; BMI 28.0
--- OUTSIDE RECORDS SUMMARY | 2025-01-10 18:54 | XMS_ITS | Clinical Summary ---
Author Organization Counts include 234 beds at the [facility] Address [address] [place] [address] Care Team Providers Care Anthropology Lecturer Name Role Phone Lucho Murry DO Primary Care Provider Social History Tobacco Use Types Packs/Day Years Used Date Smoking Tobacco: Never Assessed Sex and Gender Information Value Date Recorded Sex Assigned at Not on file Legal Sex Male 5:06 AM EST Gender Identity Not on file Sexual Orientation Not on file Plan of Treatment Not on file Care Teams Anthropology Lecturer Relationship Specialty Start Date End Date Lucho Murry [place] [facility] [place] [address] PCP - General 06/24/17
--- OUTSIDE RECORDS SUMMARY | 2025-01-10 18:54 | XMS_ITS | Clinical Summary ---
Author Organization [employer] [facility] Address [address] [place] [address] Care Team Providers Care Solar Panel Technician Name Role Phone Karla Anderson NP Primary Care Provider [phone] Surgical History Surgery Date Site/Laterality Comments TOTAL HIP ARTHROPLASTY Left PROCEDURE:TOTAL HIP ARTHROPLASTY BICEPS TENDON REPAIR Right PROCEDURE:BICEPS TENDON REPAIR COLONOSCOPY PROCEDURE:COLONOSCOPY KNEE ARTHROSCOPY 02/04/2019 Right PROCEDURE:KNEE ARTHROSCOPY;COMMENT:Procedure: ARTHROSCOPY RIGHT KNEE, PARTIAL MEDIAL MENISCTOMY; Surgeon: Gilmar Sheppard MD; Location: [facility]; Service: Orthopedics; Laterality: Right; Medical History Medical History Date Comments Insomnia DX:Insomnia GERD (gastroesophageal reflux disease) DX:GERD (gastroesophageal reflux disease) RLS (restless legs syndrome) DX: RLS (restless legs syndrome) Hyperlipidemia DX:Hyperlipidemi a Femur fracture (CMS/HCC V24, CMS/HCC V28) 1981 DX:Femur fracture ([facility]);COMMENT:on right Rib fractures 1981 DX:Rib fractures Rotator cuff injury DX:Rotator c uff injury;COMMENT:left in operable current Family History Medical History Relation Name Comments Coronary artery disease Father Heart disease Father Relation Name Status Comments Father Social History Tobacco Use Types Packs/Day Years Used Date Smoking Tobacco: Every Day Cigarettes Smokeless Tobacco: Never Alcohol Use Standard Drinks/Week Comments No 0 (1 standard drink = 0.6 oz pur e alcohol) Sex and Gender Information Value Date Recorded Sex Assigned at Not on file Legal Sex Male 12:27 AM EST Gender Identity Not on file Sexual Orientation Not on file Obstetrics History Plan of Treatment Health Maintenance Due Date Last Done Comments DTaP,Tdap,and Td Vaccines (1 - Tdap) 1982 Pneumococcal Vaccine: 50+ Ye ars (1 of 1 - PCV) 2013 Zoster Vaccines (1 of 2) 2013 Depression Screening 04/27/2024 COVID-19 Vaccine (1 - 2023-2 5 season) 2024 Influenza Vaccine (#1) 2024 RSV Immunization Adult Patie nts (1 - 1-dose 75+ series) 2038 HIB Vaccines Aged Out No longer eligi ble based on patient's age to complete this topic HPV Vaccines Aged Out No longer eligi ble based on patient's age to complete this topic Hepatitis A Vaccines Aged Out No long er eligible based on patient's age to complete this topic Hepatitis B Vaccines Aged Out No long er eligible based on patient's age to complete this topic IPV Vaccines Aged Out No longer eligi ble based on patient's age to complete this topic MMR Vaccines Aged Out No longer eligi ble based on patient's age to complete this topic Meningococcal ACWY Vaccine Aged Out N o longer eligible based on patient's age to complete this topic Meningococcal B Vaccine Aged Out No l onger eligible based on patient's age to complete this topic RSV Immunization Patients Un dalia 20 months Aged Out No longer eligible b ased on patient's age to complete this topic Varicella Vaccines Aged Out No longer eligible based on patient's age to complete this topic Care Teams Solar Panel Technician Relationship Specialty Start Date End Date Karla Anderson NP [address] [place] [id number] PCP - General Family Medicine 02/01/19
--- OUTSIDE RECORDS SUMMARY | 2025-01-10 18:54 | XMS_ITS | Clinical Summary ---
Author Organization [facility] Address [address] [place] [id number] Care Team Providers Care Pulp Mixer Name Role Phone Ryan Espinal MD Primary Care Provider Social History Tobacco Use Types Packs/Day Years Used Date Smoking Tobacco: Never Assessed Sex and Gender Information Value Date Recorded Sex Assigned at Not on file Legal Sex Male 10:54 AM EDT Gender Identity Not on file Sexual Orientation Not on file Plan of Treatment Health Maintenance Due Date Last Done Comments Pneumococcal Vaccine: 50+ Years (1 of 2 - PCV) 982 Colorectal Cancer Screening: Annual FOBT 02/24/2012 Colorectal Cancer Screening: Colonoscopy 02/24/2012 Colorectal Cancer Screening: Sigmoidoscopy 02/24/2012 Hepatitis B Vaccine (1 of 3 - Risk 3-dose series) 01/27 Influenza Vaccine (#1) 2024 03/23/2018 Insurance [employer] Medicare Care Teams Pulp Mixer Relationship Specialty Start Date End Date Ryan Espinal MD [address] [facility] [address] [place] [phone] PCP - General Family Medicine 11/18/23
--- OUTSIDE RECORDS SUMMARY | 2025-01-10 18:54 | XMS_ITS | Clinical Summary ---
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 Acute pain of right knee 12/01/2016 Social History Tobacco Use Types Packs/Day Years Used Date Smoking Tobacco: Never Assessed Sex and Gender Information Value Date Recorded Sex Assigned at Not on file Legal Sex Male 8:15 PM EDT Gender Identity Not on file Sexual Orientation Not on file Plan of Treatment Health Maintenance Due Date Last Done Comments Hepatitis C Virus Screening 1965 HIV Screening 02/24/1976 DTaP/Tdap/Td Vaccines (1 - Tdap) 1982 Colonoscopy 02/24/2008 Pneumococcal Vaccines 50+ (1 of 1 - PCV) 2013 Zoster (Shingles) Vaccine (1 of 2) 2013 Influenza Vaccine 11/25/2024 COVID-19 Vaccine (1 - 2023-2 5 season) 2024 RSV Vaccine 60 years and old er and Patients (1 - 1-dose 75+ series) 2038 Hepatitis B Vaccines Aged Out No long er eligible based on patient's age to complete this topic Insurance MEDICARE PART A & B [facility] Care Teams Centrex Radio Operator Relationship Specialty Start Date End Date Lucho Murry DO [address] [place] [address] PCP - General Internal Medicine 11/28/16
== END 2025-01-10 16:40 | disposition home or self-care (01) ==
LOC: HO.HMCFM 15:45
PROVIDERS: PCP Family Medicine; Visit Provider Family Medicine
DX: M79.89 Other specified soft tissue disorders (principal); L03.90 Cellulitis, unspecified; I87.2 Venous insufficiency (chronic) (peripheral); T84.018A Broken internal joint prosthesis, other site, initial encounter; Z96.659 Presence of unspecified artificial knee joint

== ENCOUNTER → 2025-01-10 15:44 | Outpatient (BNVA) | payer MEDICARE, SELFPAY | PROVIDERS: PCP Family Medicine; Visit Provider Family Medicine | DX: I87.2 Venous insufficiency (chronic) (peripheral) (principal); M79.89 Other specified soft tissue disorders; L03.90 Cellulitis, unspecified; T84.018A Broken internal joint prosthesis, other site, initial encounter; X58.XXXA Exposure to other specified factors, initial encounter; Y93.9 Activity, unspecified; Y92.9 Unspecified place or not applicable; Y99.9 Unspecified external cause status; Z96.659 Presence of unspecified artificial knee joint | CPT/HCPCS: 99212 ==

== ENCOUNTER 2025-01-16 12:30 | Outpatient (REF) | payer MEDICARE, SELFPAY ==
[2025-01-16 14:21] LABS: MANUAL DIFF FLAG NO
[2025-01-16 14:38] LABS: Hematocrit 36.8 % (42.0-52.0); Hemoglobin 12.5 g/dl (14.0-18.0); Imm Gran Abs Auto 0.01 X10*3/uL (0.00-0.03); Imm Gran Pct Auto 0.2 % (0.0-0.4); Lymphocytes Absolute Auto 1.4 X10*3/uL (1.2-4.9); Mean Corpuscular HGB Conc 34.0 g/dl (31.0-36.0); Mean Corpuscular Hemoglobin 32.0 pg (27.0-33.0); Mean Corpuscular Volume 94.1 fL (80.0-98.0); NRBC Abs Auto 0.000 X10*3/uL (0.0-0.012); NRBC Pct Auto 0.0 /100WBC (0.0-0.2); Red Blood Count 3.91 X10*6/uL (4.60-5.80); White Blood Count 4.5 X10*3/uL (4.8-10.8)
[2025-01-16 14:39] LABS: Platelet Count 86 X10*3/uL (160-400)
[2025-01-16 14:41] LABS: Alanine Aminotransferase 33 U/L (0-40); Albumin Level 3.3 g/dL (3.5-5.0); Alkaline Phosphatase 103 U/L (39-117); Anion Gap 11 (12-20); Aspartate Amino Transferase 59 U/L (5-37); Blood Urea Nitrogen 20 mg/dL (9-16); Calcium 9.0 mg/dL (8.4-10.2); Carbon Dioxide 26 mmol/L (22-29); Chloride 108 mmol/L (96-108); Estimated Glomerular Filt Rate > 60; Potassium 4.6 mmol/L (3.3-5.1); Sodium 140 mmol/L (135-145); Total Protein 6.7 g/dL (6.5-8.0)
--- OUTSIDE RECORDS SUMMARY | 2025-01-16 15:00 | XMS_ITS | Clinical Summary ---
Demographics Address [address] [place] [address] Home Phone Preferred Language [place] Marital Status Single Hinduism Affiliation Unknown
== END 2025-01-16 12:31 | disposition home or self-care (01) ==
LOC: HO.WFDLDS 12:30
PROVIDERS: Visit Provider Family Medicine
DX: Z00.00 Encounter for general adult medical examination without abnormal findings (principal); K76.82 Hepatic encephalopathy; D64.9 Anemia, unspecified
CPT/HCPCS: 36415; 80053; 85025

== ENCOUNTER 2025-01-17 13:49 | Outpatient (AMB) | payer MEDICARE, SELFPAY ==
--- NOTE | 2025-01-17 13:53 | MHC.PC.OV ---
Vital Signs 01/17/25 14:00 Height 5 ft 10 in Weight 195 lb 4 oz BMI 28.0 BP 102/60 Blood Pressure Location Rt brachial Position Sitting Respiration 16 Pulse 96 Pulse Source Pulse Oximeter Temp 98.4 F Temp Source Temporal Artery Scan Pulse Oximetry (%) 97 Oxygen Delivery Method Room Air Intake Visit Reasons: f/u cellulitis Intake Note: Domenic presents in the office today following up to his cellulitis. Patient questioning Gabapentin Rx. Allergies No Known Allergies Allergy (Verified 01/17/25 13:58) Medication List - Last Reconciled 01/17/25 by Ryan Espinal MD amitriptyline 20 mg (2 x 10 mg) PO BEDTIME aspirin (Adult Low Dose Aspirin) 81 mg PO DAILY blood pressure monitor Automatic, Digital. Dx: I10. Daily As directed, 999 days/lifetime cephalexin 500 mg PO Q12H 10 days doxycycline hyclate 20 mg PO BID ferrous sulfate 325 mg PO DAILY 30 days folic acid 1 mg PO DAILY furosemide 40 mg (2 x 20 mg) PO DAILY 30 days gabapentin 300 mg PO BEDTIME 30 days lactulose 30 grams (45 mL) PO TID 90 days meloxicam 15 mg PO DAILY 30 days multivitamin with minerals 1 cap PO DAILY nadolol 20 mg PO DAILY 30 days omeprazole 20 mg PO DAILY 30 days pramipexole 0.25 mg PO BEDTIME rifaximin (Xifaxan) 550 mg PO BID 30 days simvastatin 20 mg PO DAILY spironolactone 50 mg PO QAM tamsulosin 0.4 mg PO BEDTIME 30 days thiamine HCl (vitamin B1) 100 mg PO BID topiramate 50 mg PO DAILY Tobacco use date assessed: 01/17/25 Dental Screening Dental Screen Date: 01/17/25 Did you have a dental visit in the last 12 months?: No Did you have a dental problem in the last 6 months where you did not have access to dental care?: No Was dental information given to patient?: Patient has dentist HPI f/u cellulitis HPI Details 59 y/o male presents to f/u cellulitis. Cellulitis resolved. Still has significant venous stasis dermatitis. Ongoing LE edema PFSH Medical History No pertinent past medical history Surgical History History of hip replacement History of esophagogastroduodenoscopy (EGD) H/O colonoscopy History of arthroscopy of right knee Family History Father Diabetes mellitus Mother HTN (hypertension) Brother No problems noted. Sister No problems noted. Sister No problems noted. Sister No problems noted. Social History (Updated 01/17/25 @ 14:00 by Nathalie Hale CMA) Household Members: Friend(s) Housing: Apartment Alcohol intake: current Alcohol intake frequency: a few times a month Patient Tobacco Use Status: Current everyday Tobacco user Cigarette Packs Per Day: 0.26 Cigarettes Per Day: 6 Years Smoked: 35 e-Cigarette/Vaping Use: Never Used Second Hand Smoke Exposure: No service: No Current occupational status: disabled Cognitive needs: No Hearing needs: No Vision needs: No Questionnaire Thrive Questionnaire Date Thrive assessed: 01/05/25 I am a: Patient What is your living situation today?: I have a steady place to live Within the past 12 months, did the food you bought not last and you didn't have the money to get more?: Never true Within the past 12 months, did you worry whether your food would run out before you got money to buy more?: Sometimes True Do you have trouble paying for medicines?: No Do you have trouble getting transportation to medical appointments?: Yes Do you have trouble paying your heating and electricity bill?: Yes Do you have trouble taking care of your child, family member or friend?: No Do you have trouble with day-to-day activities such as bathing, preparing meals, shopping, managing finances, etc.?: No Are you currently unemployed and looking for a job?: No Are you interested in more education?: No Please select the resources that you would like help with: Daily support Currently or been in a relationship where the following occur: No concerns reported THRIVE Score: 3 JOHN-7 AMB Questionnaire JOHN-7 Date JOHN - 7 assessed: 02/24/24 Source: Developed by Drs. Tulio Teixeira, Carolyn Thornton, Genaro Solorzano and colleagues, with an educational ping from [employer]. Review of Systems Const Denies chills, Denies fatigue, Denies fever(s), Denies headache(s) and Denies weakness ENT Denies dizziness and Denies headache(s) Card Denies dyspnea Resp Denies cough, Denies dyspnea, Denies wheezing and Denies other (shortness of breath) Musc Denies numbness and Denies tingling Neuro Denies dizziness, Denies headache(s), Denies numbness, Denies tingling and Denies weakness Psych Denies anxiety and Denies depression Endo Denies fatigue Aller/Immun Denies wheezing Physical exam (Primary Care) Vital Signs: Last Vital Signs Temp 98.4 F 01/17/25 14:00 Pulse 96 01/17/25 14:00 Resp 16 01/17/25 14:00 BP 102/60 01/17/25 14:00 Pulse Ox 97 01/17/25 14:00 Oxygen Delivery Method Room Air 01/17/25 14:00 BMI result Body Mass Index 28.0 Tobacco/Smoking Status: Tobacco use Status Tobacco use date assessed 01/17/25 01/17/25 14:02 Patient Tobacco Use Status Current everyday Tobacco 01/17/25 14:00 e-Cigarette/Vaping Use Never Used 01/17/25 14:00 Thrive Assessment: Date of Thrive Assessment Date Thrive assessed 01/05/25 01/17/25 13:54 Currently or been in a relationship where the following occur: No concerns reported Const General: well developed; No acute distress Nutritional Appearance: well nourished Orientation/consciousness: patient oriented x3 [facility] Head: Yes normocephalic and Yes atraumatic Eyes General: appearance normal, both eyes and all related structures Pupils: Equal, round and reactive pupils present EOM: EOMs intact bilaterally Resp Effort & Inspection: normal respiratory effort Neuro General: patient oriented x3 and gait normal Cranial nerves: Yes Equal, round and reactive pupils present Psych Affect: normal affect Coding Level of Care Code Est Pt Level 3 (75184) Diagnoses Cellulitis of skin L03.90 Swelling of lower extremity M79.89 Stasis dermatitis I87.2 Assessment & Plan Assessment & Plan (1) Cellulitis of skin: Code(s): L03.90 - Cellulitis, unspecified Category: Medical Plan: Resolved. Skin is no longer tender to touch Still has significant venous stasis dermatitis. See below. (2) Swelling of lower extremity: Code(s): M79.89 - Other specified soft tissue disorders Category: Medical Plan: Ongoing lower extremity edema He is using furosemide and elevating his leg He has been referred to vascular surgery and internal messages show is is being worked on (3) Stasis dermatitis: Code(s): I87.2 - Venous insufficiency (chronic) (peripheral) Category: Medical Plan: No further infection a but patient has significant stasis dermatitis of both legs, right worse than left Elevate leg as above Will give him a script for clobetasol Referred to dermatology as well Orders: Referrals Dermatology Referral I87.2 - Venous insufficiency (chronic) (peripheral) Medications: New gabapentin 300 mg PO BEDTIME 30 caps 3RF 30 days clobetasol 0.05% 1 appl topical BID 60 grams 1RF 2 weeks Discontinued cephalexin Discontinued Reason: Doctor's Order 500 mg PO Q12H 10 days 20 caps 0RF T84.018A - Broken internal joint prosthesis, other site, initial encounter, Z96.659 - Presence of unspecified artificial knee joint
[2025-01-17 14:00] VITALS: BP 102/60; PULSE 96; RESP 16; TEMP 36.9; O2SAT 97; BMI 28.0
--- OUTSIDE RECORDS SUMMARY | 2025-01-17 17:02 | XMS_ITS | Clinical Summary ---
[facility] Organization [facility] Address [address] [place] [address] Care Team Providers Care Networks Software Consultant Name Role Phone Karla Anderson NP Primary Care Provider [phone] Allergies No known active allergies Medications Medication Sig Dispensed Refills Start Date End Date Status omeprazole (PriLOSEC) 40 MG capsule Take 40 mg by mouth daily. 1 01/02/2019 Active pramipexole (MIRAPEX) 0.125 MG tablet Take 0.125 mg by mouth every night at bedtime. 1 12/30/2018 Active simvastatin (ZOCOR) tablet 20 mg Take 20 mg by mouth daily. 0 12/14/2018 Active traZODone (DESYREL) 50 MG tablet Take 50 mg by mouth every night at bedtime. 1 01/02/2019 Active CHANTIX 1 MG tablet Take 1 mg by mouth 2 (two) times a day. 0 01/20/2019 Active Melatonin 10 MG TABS Take 1 tablet by mouth every night at bedtime. 0 Active oxyCODONE-acetaminoph en (PERCOCET) 5-325 MG per tablet Take 2 tablets by mouth every 4 (four) hours as needed. 24 tablet 0 02/04/2019 Active dextrose 5 % and sodium chloride 0.45 % (D5S4) 5-0.45 % infusion Inject 75 mL/hr into the vein continuous. 100 mL 0 02/04/2019 Active lactated ringers infusion Inject 100 mL/hr into the vein continuous. 250 mL 0 02/04/2019 Active lactated ringers infusion Inject 100 mL/hr into the vein continuous. 250 mL 0 02/04/2019 Active oxyCODONE-acetaminoph en (PERCOCET) 5-325 MG per tablet Take 2 tablets by mouth every 4 (four) hours as needed for pain. 40 tablet 0 02/04/2019 Active Family History Medical History Relation Name Comments Coronary artery disease Father Heart disease Father Relation Name Status Comments Father Social History Tobacco Use Types Packs/Day Years Used Date Smoking Tobacco: Every Day Cigarettes 0.5 Smokeless Tobacco: Never Alcohol Use Standard Drinks/Week Comments No 0 (1 standard drink = 0.6 oz pur e alcohol) sober for 18 months Sex and Gender Information Value Date Recorded Sex Assigned at Male 02/01/2019 10:47 AM EDT Gender Identity Not on file Sexual Orientation Not on file Last Filed Vital Signs Vital Sign Reading Time Taken Comments Blood Pressure 133/76 02/04/2019 9:45 AM EDT Pulse 75 02/04/2019 9:45 AM EDT Temperature 36.3 C (97.3 F) 02/04/2019 9:15 AM EDT Respiratory Rate 16 02/04/2019 9:45 AM EDT Oxygen Saturation 98% 02/04/2019 9:45 AM EDT Inhaled Oxygen Concentration - - Weight 90.7 kg (200 lb) 02/04/2019 6:36 AM EDT Height 177.8 cm (5' 10 ) 02/04/2019 6:36 AM EDT Body Mass Index 28.7 02/04/2019 6:36 AM EDT Plan of Treatment Health Maintenance Due Date Last Done Comments Hepatitis C Screening 1965 COVID-19 Vaccine (#1) 1963 Pneumococcal Vaccine (1 of 2 - PCV) 1969 Depression Screening 1975 BMI Counseling 1981 Preventative Health Evaluation 1981 Tobacco Cessation Counseling 1981 DTap / Tdap / Td (1 - Tdap) 1982 Colon Cancer Screening (Colonoscopy) 02/24/2008 Shingrix-Zoster Vaccine (1 of 2) 2013 Influenza Vaccine (#1) 2024 RSV Adult > 60+ Yrs or Pregn ant (1 - 1-dose 75+ series) 2038 Hepatitis B Vaccines Aged Out No long er eligible based on patient's age to complete this topic RSV Ped < 20 months Aged Out No longe r eligible based on patient's age to complete this topic Advance Directives For more information, please contact: [phone] Documents on File Type Date Recorded Patient Bolter Helper Expl anation Advance Directive and Living Will 02/01/2019 10:45 AM Care Teams Networks Software Consultant Relationship Specialty Start Date End Date Karla Anderson NP [address] [place] [address] [place] [address] PCP - General Family Medicine 02/01/19
--- OUTSIDE RECORDS SUMMARY | 2025-01-17 17:02 | XMS_ITS | Clinical Summary ---
Author Organization [facility] Address [address] [place], [place] [id number] Care Team Providers Care Bean Sorter Name Role Phone Lucho Murry Primary Care Provider Allergies No known active allergies Active Problems [...] topic Insurance MEDICARE PART A & B [facility] Care Teams Bean Sorter Relationship Specialty Start Date End Date Lucho Murry DO [address] [place] [address] PCP - General Internal Medicine 11/28/16
--- OUTSIDE RECORDS SUMMARY | 2025-01-17 17:02 | XMS_ITS | Clinical Summary ---
Author Organization [facility] Address [address] [place] [address] Care Team Providers Care Inking Machine Tender Name Role Phone Karla [place] NP Primary Care Provider [phone] Surgical History Surgery Date Site/Laterality Comments TOTAL HIP ARTHROPLASTY Left PROCEDURE:TOTAL HIP ARTHROPLASTY BICEPS TENDON REPAIR Right PROCEDURE:BICEPS TENDON REPAIR COLONOSCOPY PROCEDURE:COLONOSCOPY KNEE ARTHROSCOPY 02/04/2019 Right PROCEDURE:KNEE ARTHROSCOPY;COMMENT:Procedure: ARTHROSCOPY RIGHT KNEE, PARTIAL MEDIAL MENISCTOMY; Surgeon: Gilmar Sheppard MD; Location: [facility]; Service: Orthopedics; Laterality: Right; Medical History Medical History Date Comments Insomnia DX:Insomnia GERD (gastroesophageal reflux disease) DX:GERD (gastroesophageal reflux disease) RLS (restless legs syndrome) DX: RLS (restless legs syndrome) Hyperlipidemia DX:Hyperlipidemi a Femur fracture (CMS/HCC V24, CMS/HCC V28) 1981 DX:Femur fracture ([facility]);COMMENT:on right Rib fractures 1981 DX:Rib [...] age to complete this topic Care Teams Inking Machine Tender Relationship Specialty Start Date End Date Karla Anderson NP [address] [place] [id number] PCP - General Family Medicine 02/01/19
--- OUTSIDE RECORDS SUMMARY | 2025-01-17 17:02 | XMS_ITS | Clinical Summary ---
Author Organization [facility] Facility Address [address] [place] [address] Care Team Providers Care New Grad Rn Name Role Phone Ryan Espinal MD Primary [...] 2024 03/23/2018 Insurance [employer] Medicare Care Teams New Grad Rn Relationship Specialty Start Date End Date Ryan Espinal MD [address] [facility] [address] [place] [id number] PCP - General Family Medicine 11/18/23
--- OUTSIDE RECORDS SUMMARY | 2025-01-17 17:02 | XMS_ITS | Clinical Summary ---
Author Organization [facility] Address [address] [place] [address] Care Team Providers Care Flower Cheniller Name Role Phone Lucho Murry DO Primary Care Provider [phone] Social History Tobacco Use Types Packs/Day Years Used Date Smoking Tobacco: Never Assessed Sex and Gender Information Value Date Recorded Sex Assigned at Not on file Legal Sex Male 5:06 AM EST Gender Identity Not on file Sexual Orientation Not on file Plan of Treatment Not on file Care Teams Flower Cheniller Relationship Specialty Start Date End Date [facility] [place] [address] PCP - General 06/24/17
== END 2025-01-17 14:20 | disposition home or self-care (01) ==
LOC: HO.HMCFM 13:49
PROVIDERS: PCP Family Medicine; Visit Provider Family Medicine
DX: L03.90 Cellulitis, unspecified (principal); M79.89 Other specified soft tissue disorders; I87.2 Venous insufficiency (chronic) (peripheral)

== ENCOUNTER → 2025-01-17 13:49 | Outpatient (BNVA) | payer MEDICARE, SELFPAY | PROVIDERS: PCP Family Medicine; Visit Provider Family Medicine | DX: I87.2 Venous insufficiency (chronic) (peripheral) (principal); T84.018A Broken internal joint prosthesis, other site, initial encounter; X58.XXXA Exposure to other specified factors, initial encounter; Y93.9 Activity, unspecified; Y92.9 Unspecified place or not applicable; Y99.9 Unspecified external cause status | CPT/HCPCS: 99212 ==

== ENCOUNTER 2025-02-21 15:22 | Outpatient (AMB) | payer MEDICARE, SELFPAY ==
--- NOTE | 2025-02-21 15:38 | A.OFFPC_ITS ---
Vital Signs 02/21/25 15:41 Height 5 ft 10 in Weight 194 lb 4 oz BMI 27.9 BP 114/72 Blood Pressure Location Lt brachial Position Sitting Respiration 16 Pulse 97 Pulse Source Pulse Oximeter Temp 98 F Temp Source Oral Pulse Oximetry (%) 99 Oxygen Delivery Method Room Air Intake Visit Reasons: f/u cellulitis Intake Note: Follow up cellulitis right leg Capital Project Engineer Required: No Allergies No Known Allergies Allergy (Verified 02/21/25 15:42) Medication List - Last Reconciled 02/21/25 by Ryan Espinal MD amitriptyline 20 mg (2 x 10 mg) PO BEDTIME aspirin (Adult Low Dose Aspirin) 81 mg PO DAILY blood pressure monitor Automatic, Digital. Dx: I10. Daily As directed, 999 days/lifetime clobetasol 0.05% 1 appl topical BID 2 weeks doxycycline hyclate 20 mg PO BID ferrous sulfate 325 mg PO DAILY 30 days folic acid 1 mg PO DAILY furosemide 40 mg (2 x 20 mg) PO DAILY 30 days gabapentin 300 mg PO BEDTIME 30 days lactulose 30 grams (45 mL) PO TID 90 days meloxicam 15 mg PO DAILY 30 days multivitamin with minerals 1 cap PO DAILY nadolol 20 mg PO DAILY 30 days omeprazole 20 mg PO DAILY 30 days pramipexole 0.25 mg PO BEDTIME rifaximin (Xifaxan) 550 mg PO BID 30 days simvastatin 20 mg PO DAILY spironolactone 50 mg PO QAM tamsulosin 0.4 mg PO BEDTIME 30 days thiamine HCl (vitamin B1) 100 mg PO BID topiramate 50 mg PO DAILY Tobacco use date assessed: 02/21/25 Dental Screening Dental Screen Date: 01/17/25 HPI f/u cellulitis HPI Details 59 y/o male presents to f/u cellulitis. Had given him clobetasol for stasis dermatitis which seems to have improved it. Does note ongoing swelling RLE. Reports ongoing knee pain. Pt notes he is prescribed amitriptyline which does not do much for him. [facility] Medical History No pertinent past medical history Surgical History History of hip replacement History of esophagogastroduodenoscopy (EGD) H/O colonoscopy History of arthroscopy of right knee Family History Father Diabetes mellitus Mother HTN (hypertension) Brother No problems noted. Sister No problems noted. Sister No problems noted. Sister No problems noted. Social History (Updated 02/21/25 @ 15:46 by Grace Ho CMA) Household Members: Friend(s) Housing: Apartment Alcohol intake: current Alcohol intake frequency: a few times a month Patient Tobacco Use Status: Current everyday Tobacco user Cigarette Packs Per Day: 0.26 Cigarettes Per Day: 6 Years Smoked: 35 e-Cigarette/Vaping Use: Never Used Second Hand Smoke Exposure: No service: No Current occupational status: disabled Cognitive needs: No Hearing needs: No Vision needs: No Questionnaire Thrive Questionnaire Date Thrive assessed: 01/05/25 I am a: Patient What is your living situation today?: I have a steady place to live Within the past 12 months, did the food you bought not last and you didn't have the money to get more?: Never true Within the past 12 months, did you worry whether your food would run out before you got money to buy more?: Sometimes True Do you have trouble paying for medicines?: No Do you have trouble getting transportation to medical appointments?: Yes Do you have trouble paying your heating and electricity bill?: Yes Do you have trouble taking care of your child, family member or friend?: No Do you have trouble with day-to-day activities such as bathing, preparing meals, shopping, managing finances, etc.?: No Are you currently unemployed and looking for a job?: No Are you interested in more education?: No Please select the resources that you would like help with: Daily support Currently or been in a relationship where the following occur: No concerns reported THRIVE Score: 3 AUDIT C Alcohol Use Questionnaire (AUDIT-C) 1. How often do you have a drink containing alcohol?: Never 3. How often do you have six or more drinks on one occasion?: Never Total Score: 0 JOHN-7 AMB Questionnaire JOHN-7 Date JOHN - 7 assessed: 02/24/24 Source: Developed by Drs. Tulio Teixeira, Carolyn Thornton, Genaro Solorzano and colleagues, with an educational ping from [employer]. Review of Systems Const Denies chills, Denies fatigue, Denies fever(s), Denies headache(s) and Denies weakness ENT Denies dizziness and Denies headache(s) Card Denies dyspnea Resp Denies cough, Denies dyspnea, Denies wheezing and Denies other (shortness of breath) Musc Denies numbness and Denies tingling Neuro Denies dizziness, Denies headache(s), Denies numbness, Denies tingling and Denies weakness Psych Denies anxiety and Denies depression Endo Denies fatigue Aller/Immun Denies wheezing Physical exam (Primary Care) Vital Signs: Last Vital Signs Temp 98 F 02/21/25 15:41 Pulse 97 02/21/25 15:41 Resp 16 02/21/25 15:41 BP 114/72 02/21/25 15:41 Pulse Ox 99 02/21/25 15:41 Oxygen Delivery Method Room Air 02/21/25 15:41 BMI result Body Mass Index 27.9 Tobacco/Smoking Status: Tobacco use Status Tobacco use date assessed 02/21/25 02/21/25 15:46 Patient Tobacco Use Status Current everyday Tobacco 02/21/25 15:46 e-Cigarette/Vaping Use Never Used 02/21/25 15:46 Thrive Assessment: Date of Thrive Assessment Date Thrive assessed 01/05/25 02/21/25 15:40 Currently or been in a relationship where the following occur: No concerns reported Const General: well developed; No acute distress Nutritional Appearance: well nourished Orientation/consciousness: patient oriented x3 [facility] Head: Yes normocephalic and Yes atraumatic Eyes General: appearance normal, both eyes and all related structures Pupils: Equal, round and reactive pupils present EOM: EOMs intact bilaterally Resp Effort & Inspection: normal respiratory effort Neuro General: patient oriented x3 and gait normal Cranial nerves: Yes Equal, round and reactive pupils present Psych Affect: normal affect Coding Level of Care Code Est Pt Level 4 (29596) Diagnoses Swelling of lower extremity M79.89 Stasis dermatitis I87.2 Cellulitis of skin L03.90 Assessment & Plan Assessment & Plan (1) Swelling of lower extremity: Code(s): M79.89 - Other specified soft tissue disorders Category: Medical Plan: Ongoing swelling at right lower extremity; foot ankle and calf with erythema as well as venous stasis dermatitis. Cellulitis seems to resolved. He is on doxycycline. Patient has worsened pain at his right knee. Continue elevating leg Continue furosemide Will check ultrasound to rule out DVT as he has worsened pain at his knee Patient has upcoming appointment with Dr. Perry, vascular surgery in February (2) Stasis dermatitis: Code(s): I87.2 - Venous insufficiency (chronic) (peripheral) Category: Medical Plan: Patient says that clobetasol is helping Continue clobetasol Elevate leg (3) Cellulitis of skin: Code(s): L03.90 - Cellulitis, unspecified Category: Medical Plan: Acute cellulitis seems to have resolved. He remains on doxycycline Orders: Orders US venous duplex LE RT Today I87.2 - Venous insufficiency (chronic) (peripheral), M79.89 - Other specified soft tissue disorders, R23.8 - Other skin changes Medications: Changed From gabapentin 300 mg PO BEDTIME 30 days 30 caps 3RF To gabapentin 300 mg PO Q12H 60 caps 3RF 30 days Refilled meloxicam 15 mg PO DAILY 30 tabs 2RF 30 days
[2025-02-21 15:41] VITALS: BP 114/72; PULSE 97; RESP 16; TEMP 36.6; O2SAT 99; BMI 27.9
--- OUTSIDE RECORDS SUMMARY | 2025-02-21 19:47 | XMS_ITS | Clinical Summary ---
Author [facility] Address [address] [place] [address] Care Team Providers Care Boilermaker Industrial Boilers Name Role Phone Lucho Murry DO Primary Care Provider Social History Tobacco Use Types Packs/Day Years Used Date Smoking Tobacco: Never Assessed Sex and Gender Information Value Date Recorded Sex Assigned at Not on file Legal Sex Male 5:06 AM EST Gender Identity Not on file Sexual Orientation Not on file Plan of Treatment Not on file Care Teams Boilermaker Industrial Boilers Relationship Specialty Start Date End Date Lucho Murry DO [facility][note 3][place] [address] PCP - General 06/24/17
--- OUTSIDE RECORDS SUMMARY | 2025-02-21 19:47 | XMS_ITS | Clinical Summary ---
Author Organization [facility] Facility Address [address] [place] [address] Care Team Providers Care Field Irrigation Worker Name Role Phone Ryan Espinal MD Primary [...] 2024 03/23/2018 Insurance [employer] Medicare Care Teams Field Irrigation Worker Relationship Specialty Start Date End Date Ryan Espinal MD [address] [facility] [address] [place] [phone] PCP - General Family Medicine 11/18/23
--- OUTSIDE RECORDS SUMMARY | 2025-02-21 19:47 | XMS_ITS | Clinical Summary ---
Author Organization [facility] Address [address] [place] [address] Care Team Providers Care Educational Therapy Teacher Name Role Phone Karla Anderson NP Primary Care Provider [phone] Allergies No known active allergies Medications Medication [...] Advance Directives For more information, please contact: [phone] Documents on File Type Date Recorded Patient Straightener Expl anation Advance Directive and Living Will 02/01/2019 10:45 AM Care Teams Educational Therapy Teacher Relationship Specialty Start Date End Date Karla Anderson NP [address] [place] [address] [place] [address] PCP - General Family Medicine 02/01/19
--- OUTSIDE RECORDS SUMMARY | 2025-02-21 19:47 | XMS_ITS | Clinical Summary ---
Author Organization [facility] Address [address] [place], [place] [id number] Care Team Providers Care Guideman Name Role Phone Lucho Murry Primary Care [...] - 2023-2 5 season) 2024 RSV Vaccine 50 years and old er and Patients (1 - 1-dose 75+ series) 2038 Hepatitis B Vaccines Aged Out No long er eligible based on patient's age to complete this topic Insurance MEDICARE PART A & B [facility] Care Teams Guideman Relationship Specialty Start Date End Date Lucho Murry DO [address] [place] [address] PCP - General Internal Medicine 11/28/16
--- OUTSIDE RECORDS SUMMARY | 2025-02-21 19:47 | XMS_ITS | Clinical Summary ---
Author Organization [facility] [facility] Address [address] [place] [address] Care Team Providers Care Diploma Maker Name Role Phone Karla Anderson NP Primary Care Provider [phone] Surgical History Surgery Date Site/Laterality Comments TOTAL HIP ARTHROPLASTY Left PROCEDURE:TOTAL HIP ARTHROPLASTY BICEPS TENDON REPAIR Right PROCEDURE:BICEPS TENDON REPAIR COLONOSCOPY PROCEDURE:COLONOSCOPY KNEE ARTHROSCOPY 02/04/2019 Right PROCEDURE:KNEE ARTHROSCOPY;COMMENT:Procedure: ARTHROSCOPY RIGHT KNEE, PARTIAL MEDIAL MENISCTOMY; Surgeon: Gilmar Sheppard MD; Location: [facility]; Service: Orthopedics; Laterality: Right; Medical History Medical History Date Comments Insomnia DX:Insomnia GERD (gastroesophageal reflux disease) DX:GERD (gastroesophageal reflux disease) RLS (restless legs syndrome) DX: RLS (restless legs syndrome) Hyperlipidemia DX:Hyperlipidemi a Femur fracture (CMS/HCC V24, CMS/HCC V28) 1981 DX:Femur fracture ([facility]);COMMENT:on right Rib fractures 1981 DX:Rib fractures Rotator [...] age to complete this topic Care Teams Diploma Maker Relationship Specialty Start Date End Date Karla Anderson NP [address] [place] [phone] PCP - General Family Medicine 02/01/19
--- OUTSIDE RECORDS SUMMARY | 2025-02-21 19:47 | XMS_ITS ---
Author Organization [facility] Care Team Providers Care Toy Assembler Wood Name Role Phone Frederic Bashir Unavailable Unavailable Gordon Headley Unavailable Unavailable Fatou Rinaldi Unavailable Unavailable Yasemin Dumont Unavailable Unavailable Eva Vallejo Unavailable Unavailable Tori Heath Unavailable Unavailable Allergies and adverse reactions No Known Allergies Care Team Name Role Address Phone Organization Dates Tori Heath PCP [address] [facility] [address], [place], [address], [place] (Office[place] : [facility] 12/11/2023 - 02/16/2024 Frederic Bashir [address] [place] [address], [phone], [place] (Office): [facility] 12/11/2023 - 02/16/2024 Gordon Headley [address] [facility] [address], [place], [address], [place] (Office): : : [facility] 12/11/2023 - 02/16/2024 Fatou Rinaldi [address] [place], [address], [facility] (Office): : [facility] 12/11/2023 - 02/16/2024 Yasemin Hawkins Julia [address] [facility] [address], [place], [address], [facility] (Office): : [facility] 12/11/2023 - 02/16/2024 Eva Vallejo [address] [facility] [address], [place], [address], [facility] (Office): : [facility] 12/11/2023 - 02/16/2024 Goals Section Goals Description Status Target Date (Specify: My POA/Guardian an d I or I) have been advised that my medications and therapies may change as a result of my health status through the review date. We will be made aware of any changes as soon as possible. Active 03/16/2024 Assistance will be provided for all deficits in ADL's during stay. Active 03/16/2024 [place] my code status wishes through next review Active 03/16/2024 I will be compliant with lab s & diagnostics if ordered by my doctor through the review date. Active 03/16/2024 I will be compliant with lab s & diagnostics if ordered by my doctor through the review date. Active 03/16/2024 I will be compliant with lab s & diagnostics if ordered by my doctor through the review date. Active 03/16/2024 I will be compliant with the non medication therapies, medication regimen & therapies prescribed by my doctor. I will be free of any discomfort or adverse side effects to therapies through the review date. Active 03/16/2024 I will be compliant with the non medication therapies, medication regimen & therapies prescribed by my doctor. I will be free of any discomfort or adverse side effects to therapies through the review date. Active 03/16/2024 I will be compliant with the non medication therapies, medication regimen & therapies prescribed by my doctor. I will be free of any discomfort or adverse side effects to therapies through the review date. Active 03/16/2024 I will be compliant with the non medication therapies, medication regimen & therapies prescribed by my doctor. I will be free of any discomfort or adverse side effects to therapies through the review date. Active 03/16/2024 I will be compliant with the non medication therapies, medication regimen & therapies prescribed by my doctor. I will not have an interruption in normal activities due to pain through the review date. I will be free of any discomfort or adverse side effects to therapies through the review date. Active 03/16/2024 I will be compliant with the non-pharmacological therapies, medication regimen & therapies prescribed by my doctor. I will not have an interruption in normal activities due to pain through the review date. I will be free of any discomfort or adverse side effects to therapies through the review date. Active 03/16/20 I will be free of falls through the review date. Active 03/16/2024 I will be free of major decl ine in ADL status through the review date. Active 03/16/2024 I will be transported to all Medical appointments per facility or community source during Med A stay. Active 03/16/2024 I will communicate my needs to the staff through the review date. Active 03/16/2024 I will comply with medicatio n management, treatment management and Vitals through review date. Active 03/16/2024 I will comply with nutrition al supplements that help with healing through review date. Active 03/16/2024 I will comply with wound vanesa se/nursing recommendations for wound care until healed. Active 03/16/2024 I will demonstrate adjustmen t to [place] [facility] placement by review date. Active 03/16/2024 I will express satisfaction with the type of activities I am involved in when asked through the review date. Active 2023 I will follow individualized plan for my medical condition Active 03/16/2024 I will follow provider's orders through next rev iew. Active 03/16/2024 I will have no adverse effec ts related to hypertension medications through next review period. Active 03/16/2024 I will identify ways of incr easing meaningful relationships by the review date. Active 03/16/2024 I will maintain optimal stat us and quality of life within limitations imposed by my disorder(s) through review date. Active 03/16/2024 I will not have an interrupt ion in normal activities due to pain through the review date. Active 03/16/2024 I will not sustain serious injury through the re view date. Active 03/16/2024 I will verbalize adequate re lief of pain or ability to cope with incompletely relieved pain through the review date. Active I will verbalize feelings re lated to emotional state by review date. Active 03/16/2024 My skin issues will be healed by the review date . Active 03/16/2024 Resident/POA/Guardian will be notified of all ch anges to care. Active 03/16/2024 Some of my medication has a Black Box Warning and I will have no complications through review date. Active 03/16/2024 Some of my medication has a Black Box Warning and I will have no complications through review date. Active 03/16/2024 Some of my medication has a Black Box Warning and I will have no complications through review date. Active 03/16/2024 Some of my medication have a Black Box Warning and I will have no complications through review date. Active 03/16/2024 Some of my medication have a Black Box Warning and I will have no complications through review date. Active 03/16/2024 Will have meal intakes >75% at most meals through next review. W ill tolerate diet without difficulty through next review. W ill have stable weight without significant change through next review. Weight fluctuations expected w/diuretics. W ill maintain adequate hydration through next review. Active 0 05/04/2024 Immunizations Immunization Status Vaccine Details Vaccine Code CodeSystem Date Notes TB 2 Step Mantoux Skin Test completed tuberculin skin test; unspecified formulation lotNumber: [id number] expiry: 08/25/2026 Mfg: Sanofi pasteur Given 0.1 ml Left Forearm intradermally Step 2 of Multi-step with next step required 98 CVX created date: 01/29/2024 consent date: 01/29/2024 administer ed date: 01/25/2024 TB 2 Step Mantoux Skin Test completed tuberculin skin test; unspecified formulation lotNumber: [id number] expiry: 08/22/2026 Mfg: sanofi pasteur llc Given 0.1 ml Right Forearm intradermally Step 1 of Multi-step with next step required 98 CVX created date: 12/28/2023 consent date: 12/28/2023 administer ed date: 12/14/2023 Shingrix - Dose 2 completed zoster vaccine recombinant 187 CVX created date: 01/22/2024 administer ed date: 12/01/2022 per [facility] PCV20 completed Pneumococcal conjugate vaccine 20-valent (PCV20), polysaccharide [id number] conjugate, adjuvant, preservative free lotNumber: [id number] expiry: 05/27/2025 Mfg: [employer] Given 0.5 ml Right Deltoid intramuscularly 216 CVX created date: 01/22/2024 consent date: 01/22/2024 administer ed date: 01/26/2024 Educated by nurse on 01/26/2024 VIS given Shingles vaccine completed zoster vaccine recombinant 187 CVX created date: 01/22/2024 administer ed date: 12/24/2021 Educated by on 12/24/2021 per [facility] influenza-Aflur ia Standard 0.5ml Prefilled ([id number]) completed Influenza, split virus, quadrivalent, injectable, preservative free lotNumber: [id number] expiry: 10/24/2024 Mfg: [employer] Solar Given 0.5 ml Right Deltoid intramuscularly 150 CVX created date: 02/05/2024 consent date: 02/05/2024 administer ed date: 02/05/2024 Educated by nurse on 02/05/2024 VIS Sheet given Mental Status Section Date Assessment Total Score Description 02/16/2024 CAM 0 No delirium ind icated 01/20/2024 BIMS 03 severe cognitiv e impairment 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 Insurance Providers Plan of Treatment Section Interventions Intervention Code Code System Display Name Proposed D ate Problems Problem # Description Date of onset Resolved Date Code CodeSystem Concern Status 1 DIFFICULTY IN WALKING, NOT ELSEWHERE CLASSIFIED 01/17/[address] active 2 HYPOKALEMIA 01/17/[address] active 3 METABOLIC ENCEPHALOPATHY 01/17/[address] active 4 OTHER DISORDERS OF PLASMA-PROTEIN METABOLISM, NOT ELSEWHERE CLASSIFIED 01/17/[address] active 5 OTHER PSYCHOACTIVE SUBSTANCE USE, UNSPECIFIED, UNCOMPLICATED 01/17/[address] active 6 OTHER SPECIFIED DISEASES OF BLOOD AND BLOOD-FORMING ORGANS 01/17/[address] active 7 POISONING BY LOOP [HIGH-CEILING] DIURETICS, ACCIDENTAL (UNINTENTIONAL), SUBSEQUENT ENCOUNTER 01/17/[address] active 8 ACTINIC KERATOSIS 12/11/[address] active 9 ALCOHOL USE, UNSPECIFIED, UNCOMPLICATED 12/11/[address] active 10 ALCOHOLIC CIRRHOSIS OF LIVER WITH ASCITES 12/11/[address] active 11 ANEMIA, UNSPECIFIED 12/11/[address] active 12 CELLULITIS, UNSPECIFIED 12/11/[address] active 13 ESSENTIAL (PRIMARY) HYPERTENSION 12/11/[address] active 14 HEPATIC ENCEPHALOPATHY 12/11/[address] active 15 HYPERLIPIDEMIA, UNSPECIFIED 12/11/[address] active 16 INFECTION AND INFLAMMATORY REACTION DUE TO OTHER INTERNAL JOINT PROSTHESIS, SUBSEQUENT ENCOUNTER 12/11/[address] active 17 MUSCLE WEAKNESS (GENERALIZED) 12/11/[address] active 18 OBSTRUCTIVE SLEEP APNEA (ADULT) (PEDIATRIC) 12/11/[address] active 19 PAIN IN RIGHT KNEE 12/11/[address] active 20 PORTAL HYPERTENSION 12/11/[address] active 21 PRESENCE OF RIGHT ARTIFICIAL KNEE JOINT 12/11/[address] active 22 RESTLESS LEGS SYNDROME 12/11/[address] active 23 RETENTION OF URINE, UNSPECIFIED 12/11/[address] active 24 THROMBOCYTOPENIA, UNSPECIFIED 12/11/[address] active 25 UNSPECIFIED OSTEOARTHRITIS, UNSPECIFIED SITE 12/11/[address] active 26 UNSTEADINESS ON FEET 12/11/[address] active Reason for Referral No Reasons for Referral Entered Social History Social History Observation Description Start Date End Date Code Code System Current Smoking Status Tobacco smoking consumption unknown 977192189 SNOMED CT Sex Assigned At Male 1965 45825-6 [facility] Gender Identity Sexual Orientation Vital Signs Code Code System Vitals Name Values and Units Timing Information 31463-6 [facility] Pain Level Value=0.0 02/16/2024 9279-1 [facility] Respiratory Rate Value=18.0 Units=/m in 02/15/2024 8462-4 [facility] Blood Pressure-Diastolic Value=59 Un its=mmHg 02/15/2024 8480-6 [facility] Blood Pressure-Systolic Fcnal=254 Un its=mmHg 02/15/2024 8310-5 [facility] Body Temperature Value=97.9 Units= F 02/15/2024 8867-4 [facility] Heart rate Value=88.0 Units=/min 20721-7 [facility] O2 % BldC Oximetry Value=95.0 Units= % 02/15/2024 42407-1 [facility] Weight Jcbql=927.0 Units=Lbs 8302-2 [facility] Height Value=70.0 Units=Inches 01/17/2024
== END 2025-02-21 16:18 | disposition home or self-care (01) ==
LOC: HO.HMCFM 15:23
PROVIDERS: PCP Family Medicine; Visit Provider Family Medicine
DX: M79.89 Other specified soft tissue disorders (principal); I87.2 Venous insufficiency (chronic) (peripheral); L03.90 Cellulitis, unspecified

== ENCOUNTER → 2025-02-21 15:22 | Outpatient (BNVA) | payer MEDICARE, SELFPAY | PROVIDERS: PCP Family Medicine; Visit Provider Family Medicine | DX: R60.0 Localized edema (principal); M25.561 Pain in right knee; M25.562 Pain in left knee; I87.2 Venous insufficiency (chronic) (peripheral); L03.90 Cellulitis, unspecified | CPT/HCPCS: 99212 ==

== ENCOUNTER 2025-03-14 14:26 | Outpatient (AMB) | payer MEDICARE, SELFPAY ==
--- NOTE | 2025-03-14 14:29 | A.OFFVIS_ITS ---
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 Right LE worse than Left LE. Started in September of 2023 s/p Right knee surgery, has fusion now. unable to bend right knee. 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 He reports that the swelling has been present for a long time, starting after a right knee replacement in September 2023. The patient denies any leg swelling prior to the surgery. The patient's surgical history is notable for a right knee replacement which became infected, necessitating removal of the prosthesis and subsequent knee fusion, leaving the leg straight. Complications from the initial surgery included the patella being shaved too thin to be usable and a cut tendon. He was hospitalized for two months and spent another two months in a rehabilitation facility due to the infection, which took nearly a year to resolve before the fusion could be performed. 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 He is a current smoker, having reduced his intake from one pack per day to 6-7 cigarettes per day. He denies a history of diabetes or any personal or family history of blood clots. It has been affecting there daily activities including walking. It is noted more so in right leg. Patient denies any previous venous surgery or injections. Patient denies any history of DVT/ PE. Patient denies any history of phlebitis. Trial of compression includes - [id number] but unable to wear They now present for vascular evaluation regarding their varicose veins. [facility] Medical History No pertinent past medical history Surgical History History of hip replacement History of esophagogastroduodenoscopy (EGD) H/O colonoscopy History of arthroscopy of right knee Family History Father Diabetes mellitus Mother HTN (hypertension) Brother No problems noted. Sister No problems noted. Sister No problems noted. Sister No problems noted. Social History Household Members: Friend(s) Housing: Apartment Alcohol intake: current Alcohol intake frequency: a few times a month Patient Tobacco Use Status: Current everyday Tobacco user Cigarette Packs Per Day: 0.26 Cigarettes Per Day: 6 Years Smoked: 35 e-Cigarette/Vaping Use: Never Used Second Hand Smoke Exposure: No service: No Current occupational status: disabled Cognitive needs: No Hearing needs: No Vision needs: No Review of Systems Const Reports as per HPI ENT Reports no additional complaints Card Denies chest pain, Denies chest pain at rest and Denies chest pain with activity Resp Denies chest congestion and Denies cough GI Reports no additional complaints Musc Details: pain over varicosities, aching of lower extremities, swelling, cramping, heaviness and tiredness, itching Denies abnormal gait Skin/Breast Reports pruritus and Denies wounds Neuro Reports no additional complaints and Denies abnormal gait Psych Denies no additional complaints Physical Exam Vital Signs: BMI result Body Mass Index 27.8 Const General: cooperative, healthy appearing and comfortable Orientation/consciousness: oriented to person, oriented to place and oriented to time Neck Carotids: no bruits Chest Chest palpation & inspection: normal inspection of the chest and normal palpation of entire chest wall Resp Effort & Inspection: normal respiratory effort and able to speak in complete sentences Cardio Rate: regular rate Heart sounds: S1 normal heart sound present and S2 normal heart sound present Peripheral pulses: Peripheral pulses 2+ throughout GI Inspection: Yes normal to inspection Skin Other: +2 edema, right calf CEAP Classification C4 - skin color changes Ep - Etiology Primary As - superficial veins P - reflux General skin exam: dry skin Neuro General: oriented to person, oriented to place and oriented to time Extrem Right lower extremity: full ROM, normal capillary refill and edema Left lower extremity: full ROM, normal capillary refill and edema Psych Mental Status: mental status grossly normal Assessment & Plan Assessment & Plan (1) Varicose veins of right lower extremity with inflammation: Code(s): I83.11 - Varicose veins of right lower extremity with inflammation Category: Medical Plan: In short patient has significant swelling of the lower extremity. It is clear that there is an element of lymphedema along with his previous orthopedic issues that are leading to the swelling. I have taken the liberty of ordering venous insufficiency testing to rule that out. Once that is ruled out we will continue to work him up and treat him for lymphedema. Thank you for allowing us to assist in his care. (2) Lymphedema: Code(s): I89.0 - Lymphedema, not elsewhere classified Category: Medical Plan: Patient does demonstrate clinical stigmata of lymphedema. At the current time we discuss continued conservative measures including compression stockings and leg elevation. He will follow up with us after venous insufficiency testing and we will consider him for lymphedema pump therapy after that. Thank you for allowing us to assist in his care. If there are any questions or concerns please do not hesitate to contact us Orders: Orders US venous duplex LE BI Today I83.11 - Varicose veins of right lower extremity with inflammation Coding Level of Care Code Est Pt Level 4 (41474) Diagnoses Varicose veins of right lower extremity with inflammation I83.11 Lymphedema I89.0
[2025-03-14 14:30] VITALS: BMI 27.8
--- OUTSIDE RECORDS SUMMARY | 2025-03-15 11:44 | XMS_ITS | Clinical Summary ---
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
--- OUTSIDE RECORDS SUMMARY | 2025-03-15 11:45 | XMS_ITS | Clinical Summary ---
Author Organization [facility] Address [address] [place], [place] [id number] Care Team Providers Care Junior Account Manager Name Role Phone Lucho Murry Primary Care [...] topic Insurance MEDICARE PART A & B [facility] Care Teams Junior Account Manager Relationship Specialty Start Date End Date Lucho Murry DO [address] [place] [address] PCP - General Internal Medicine 11/28/16
--- OUTSIDE RECORDS SUMMARY | 2025-03-15 11:45 | XMS_ITS | Clinical Summary ---
Author Organization [employer] [facility] Address [address] [place] [address] Care Team Providers Care Corporate Development Officer Name Role Phone Karla Anderson NP Primary Care Provider [phone] Surgical History Surgery Date Site/Laterality Comments TOTAL HIP ARTHROPLASTY Left PROCEDURE:TOTAL HIP ARTHROPLASTY BICEPS TENDON REPAIR Right PROCEDURE:BICEPS TENDON REPAIR COLONOSCOPY PROCEDURE:COLONOSCOPY KNEE ARTHROSCOPY 02/04/2019 Right PROCEDURE:KNEE ARTHROSCOPY;COMMENT:Procedure: ARTHROSCOPY RIGHT KNEE, PARTIAL MEDIAL MENISCTOMY; Surgeon: Gilmar Sheppard MD; Location: [facility]; Service: Orthopedics; Laterality: Right; Medical History Medical History Date Comments Insomnia DX:Insomnia GERD (gastroesophageal reflux disease) DX:GERD (gastroesophageal reflux disease) RLS (restless legs syndrome) DX: RLS (restless legs syndrome) Hyperlipidemia DX:Hyperlipidemi a Femur fracture (CMS/HCC V24, CMS/HCC V28) 1981 DX:Femur fracture ([facility]);COMMENT:on right Rib fractures 1981 DX:Rib fractures [...] Depression Screening 04/27/2024 COVID-19 Vaccine (1 - 2024-2 6 season) 2024 Influenza Vaccine (#1) 2024 RSV [...] age to complete this topic Care Teams Corporate Development Officer Relationship Specialty Start Date End Date Karla Anderson NP [address] [place] [phone] PCP - General Family Medicine 02/01/19
--- OUTSIDE RECORDS SUMMARY | 2025-03-15 11:45 | XMS_ITS | Clinical Summary ---
Author Organization [facility] Address [address] [place] [address] Care Team Providers Care Desk Officer Name Role Phone Lucho Murry DO Primary Care Provider [phone] Social History Tobacco Use Types Packs/Day Years Used Date Smoking Tobacco: Never Assessed Sex and Gender Information Value Date Recorded Sex Assigned at Not on file Legal Sex Male 5:06 AM EST Gender Identity Not on file Sexual Orientation Not on file Plan of Treatment Not on file Care Teams Desk Officer Relationship Specialty Start Date End Date Lucho Murry [facility] [place] [address] PCP - General 06/24/17
--- OUTSIDE RECORDS SUMMARY | 2025-03-15 11:46 | XMS_ITS | Clinical Summary ---
Author Organization [facility] Address [address] [place] [address] Care Team Providers Care Fire Crew Specialist Name Role Phone Ryan Espinal MD Primary [...] 2024 03/23/2018 Insurance [employer] Medicare Care Teams Fire Crew Specialist Relationship Specialty Start Date End Date Ryan Espinal MD [address] [facility] [address] [place] [id number] PCP - General Family Medicine 11/18/23
== END 2025-03-14 15:16 | disposition home or self-care (01) ==
LOC: HO.HVS 14:27
PROVIDERS: PCP Family Medicine; Visit Provider Surgery Vascular Surgery
DX: I83.11 Varicose veins of right lower extremity with inflammation (principal); I89.0 Lymphedema, not elsewhere classified
CPT/HCPCS: 99214

== ENCOUNTER → 2025-03-14 14:26 | Outpatient (BNVA) | payer MEDICARE, SELFPAY | PROVIDERS: PCP Family Medicine; Visit Provider Surgery Vascular Surgery | DX: I83.11 Varicose veins of right lower extremity with inflammation (principal); I89.0 Lymphedema, not elsewhere classified | CPT/HCPCS: 99212 ==

== ENCOUNTER 2025-03-21 15:27 | Outpatient (REF) | payer MEDICARE, SELFPAY ==
--- NOTE | ~2025-03-21 | US_ITS ---
EXAMINATION: US TRIPLEX LOWER EXTREMITY, RIGHT CLINICAL INFORMATION: Venous insufficiency COMPARISON: None available. TECHNIQUE: Color-flow triplex imaging with spectral analysis and compression Doppler were performed on the right lower extremity. FINDINGS: Respiratory variation, normal compression and augmented flow are noted throughout the right lower extremity. The visualized common femoral vein, superficial femoral vein, profunda femoral vein, popliteal vein and midcalf posterior tibial venous segments show no evidence of deep venous thrombosis. The peroneal veins are not well seen. There is no Flores's cyst. There is soft tissue edema in the lower extremity. US/US venous duplex LE RT IMPRESSION: No evidence of deep venous thrombosis involving the right lower extremity. Please note, the peroneal veins in the calf were not visualized, not evaluated. If the patient's symptoms persist, followup ultrasound in 5-7 days might be of value to exclude proximal propagation from a non-visualized calf vein. Electronically signed by: Butch Oneal MD 03/21/2025 04:33 PM APRIL
--- OUTSIDE RECORDS SUMMARY | 2025-03-21 19:02 | XMS_ITS | Clinical Summary ---
Author Organization [facility] Address [address] [place] [address] Care Team Providers Care Senior Internal Auditor Name Role Phone Ryan Espinal MD Primary [...] 2024 03/23/2018 Insurance [employer] Medicare Care Teams Senior Internal Auditor Relationship Specialty Start Date End Date Ryan Espinal MD [address] [facility] [address] [place] [id number] PCP - General Family Medicine 11/18/23
--- OUTSIDE RECORDS SUMMARY | 2025-03-21 19:02 | XMS_ITS | Clinical Summary ---
Author Organization [facility] Address [address] [place], [place] [id number] Care Team Providers Care Medical Office Secretary Name Role Phone Lucho Murry Primary Care [...] topic Insurance MEDICARE PART A & B [facility] Care Teams Medical Office Secretary Relationship Specialty Start Date End Date Lucho Murry DO [address] [place] [address] PCP - General Internal Medicine 11/28/16
--- OUTSIDE RECORDS SUMMARY | 2025-03-21 19:02 | XMS_ITS | Clinical Summary ---
Author Organization [facility] Address [address] [place] [address] Care Team Providers Care Customer Retention Specialist Name Role Phone Lucho Murry DO Primary Care Provider Social History Tobacco Use Types Packs/Day Years Used Date Smoking Tobacco: Never Assessed Sex and Gender Information Value Date Recorded Sex Assigned at Not on file Legal Sex Male 5:06 AM EST Gender Identity Not on file Sexual Orientation Not on file Plan of Treatment Not on file Care Teams Customer Retention Specialist Relationship Specialty Start Date End Date Lucho Murry [facility] [place] [address] PCP - General 06/24/17
--- OUTSIDE RECORDS SUMMARY | 2025-03-21 19:02 | XMS_ITS | Clinical Summary ---
Author Organization [facility] Address [address] [place] [address] Care Team Providers Care Well Testing Operator Name Role Phone Karla Anderson NP Primary Care Provider [phone] Surgical History Surgery Date Site/Laterality Comments TOTAL HIP ARTHROPLASTY Left PROCEDURE:TOTAL HIP ARTHROPLASTY BICEPS TENDON REPAIR Right PROCEDURE:BICEPS TENDON REPAIR COLONOSCOPY PROCEDURE:COLONOSCOPY KNEE ARTHROSCOPY 02/04/2019 Right PROCEDURE:KNEE ARTHROSCOPY;COMMENT:Procedure: ARTHROSCOPY RIGHT KNEE, PARTIAL MEDIAL MENISCTOMY; Surgeon: Gilmar Sheppard MD; Location: [facility]; Service: Orthopedics; Laterality: Right; Medical History Medical History Date Comments Insomnia DX:Insomnia GERD (gastroesophageal reflux disease) DX:GERD (gastroesophageal reflux disease) RLS (restless legs syndrome) DX: RLS (restless legs syndrome) Hyperlipidemia DX:Hyperlipidemi a Femur fracture (CMS/HCC V24, CMS/HCC V28) 1981 DX:Femur fracture ([facility]);COMMENT:on right Rib fractures 1981 DX:Rib fractures [...] age to complete this topic Care Teams Well Testing Operator Relationship Specialty Start Date End Date Karla Anderson NP [address] [place] [phone] PCP - General Family Medicine 02/01/19
--- OUTSIDE RECORDS SUMMARY | 2025-03-21 19:02 | XMS_ITS | Clinical Summary ---
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
== END 2025-03-21 15:28 | disposition home or self-care (01) ==
LOC: HO.US 15:27
PROVIDERS: Visit Provider Family Medicine
DX: I87.2 Venous insufficiency (chronic) (peripheral) (principal); M79.89 Other specified soft tissue disorders; R23.8 Other skin changes
CPT/HCPCS: 93971

== ENCOUNTER → 2025-03-21 15:31 | Outpatient (BNV) | payer MEDICARE, SELFPAY | PROVIDERS: Visit Provider Radiology Diagnostic Ultrasound | DX: I87.2 Venous insufficiency (chronic) (peripheral) (principal) | CPT/HCPCS: 93971 ==

== ENCOUNTER 2025-04-13 13:33 | Outpatient (REF) | payer MEDICARE, SELFPAY ==
--- NOTE | ~2025-04-13 | US_ITS ---
EXAMINATION: US LOWER EXTREMITY VENOUS (REFLUX EXAM), BILATERAL CLINICAL INFORMATION: I 83.11. Varices. COMPARISON: None. TECHNIQUE: Color flow triplex imaging and compression Doppler was performed to evaluate both the deep and the superficial systems bilaterally. To evaluate the superficial system, the examination was performed in the upright position. Color-flow Doppler ultrasound and compression ultrasound were utilized. In addition, maneuvers were utilized to demonstrate reflux. FINDINGS: 1. DEEP VENOUS ULTRASOUND OF THE RIGHT LOWER EXTREMITY: Common Femoral Vein: Compressible, normal respiratory variation and augmented flow. Femoral Vein: Compressible, normal color flow and augmentation. Popliteal Vein: Compressible, normal augmentation. Deep Reflux: 2108 ms in the popliteal vein. There is no evidence of a Flores's cyst. 2. SUPERFICIAL ULTRASOUND WITH DOPPLER OF RIGHT LOWER EXTREMITY: GREAT SAPHENOUS VEIN: Saphenofemoral Junction: 0.6 cm; Reflux: 0 ms Proximal Thigh: 0.5 cm; Reflux: 0 ms Mid Thigh: 0.5 cm; Reflux: 0 ms Distal Thigh: 0.4 cm; Reflux: 0 ms At Knee: 0.4 cm; Reflux: 0 ms Proximal Calf: 0.4 cm; Reflux: 0 ms Mid Calf: 0.4 cm; Reflux: 0 ms Distal Calf: 0.5 cm; Reflux: 0 ms DUPLICATED GREAT SAPHENOUS VEIN: Saphenofemoral Junction: 0.6 cm; Reflux: 0 ms Proximal Thigh: 0.4 cm; Reflux: 0 ms Mid Thigh: 0.4 cm; Reflux: 0 ms Distal Thigh: 0.5 cm; Reflux: 0 ms At Knee: 0.4 cm; Reflux: 0 ms Proximal Calf: 0.5 cm; Reflux: 0 ms Mid Calf: 0.5 cm; Reflux: 0 ms Distal Calf: 0.2 cm; Reflux: 0 ms DUPLICATED MEDIAL GREAT SAPHENOUS VEIN: Diameter: None imaged Reflux: NA DUPLICATED LATERAL GREAT SAPHENOUS VEIN: Diameter: 0.2 cm. Reflux: NA SMALL SAPHENOUS VEIN: Saphenopopliteal Junction: Not seen. Proximal: Not seen. Distal: Not seen. VEIN OF GIACOMINI: Size: 0.3 cm Reflux: NA PERFORATORS: Location: Great saphenous vein mid thigh and midcalf. Size: 0.3 and 0.4 cm. Reflux: NA VARICOSITIES: Location: None imaged. Size: NA Reflux: NA 3. DEEP VENOUS ULTRASOUND OF THE LEFT LOWER EXTREMITY: Common Femoral Vein: Compressible, normal respiratory variation and augmented flow. Femoral Vein: Compressible, normal color flow and augmentation. Popliteal Vein: Compressible, normal augmentation. Deep Reflux: There is no evidence of reflux in the deep system in either the common femoral vein, superficial femoral or the popliteal vein. There is no evidence of a Flores's cyst. 4. SUPERFICIAL ULTRASOUND WITH DOPPLER OF LEFT LOWER EXTREMITY: GREAT SAPHENOUS VEIN: Saphenofemoral Junction: 0.6 cm; Reflux: 0 ms Proximal Thigh: 0.5 cm; Reflux: 0 ms Mid Thigh: 0.5 cm; Reflux: 0 ms Distal Thigh: 0.5 cm; Reflux: 0 ms At Knee: 0.4 cm; Reflux: 0 ms Proximal Calf: 0.4 cm; Reflux: 0 ms Mid Calf: 0.3 cm; Reflux: 0 ms Distal Calf: 0.4 cm; Reflux: 0 ms DUPLICATED MEDIAL GREAT SAPHENOUS VEIN: Diameter: None imaged Reflux: NA DUPLICATED LATERAL GREAT SAPHENOUS VEIN: Diameter: 0.3 cm. Reflux: NA SMALL SAPHENOUS VEIN: Saphenopopliteal Junction: 0.2 cm; Reflux: 0 ms Proximal: 0.3 cm; Reflux: 0 ms Distal: 0.3 cm; Reflux: 0 ms VEIN OF GIACOMINI: Size: 0.3 cm. Reflux: NA PERFORATORS: Location: None imaged Size: NA Reflux: NA VARICOSITIES: Location: Mid thigh. Size: 0.4 cm. Reflux: NA US/US venous insuf bilat IMPRESSION: Right: No venous insufficiency. Perforators without reflux in the mid thigh and mid calf. Left: No venous insufficiency. Varices, mid thigh without reflux. Electronically signed by: Mo Woods MD 04/13/2025 03:05 PM EST
--- OUTSIDE RECORDS SUMMARY | 2025-04-13 17:40 | XMS_ITS | Clinical Summary ---
Author Organization [facility] Address [address] [place] [address] Care Team Providers Care Billing Coordinator Name Role Phone Lucho Murry DO Primary Care Provider Social History Tobacco Use Types Packs/Day Years Used Date Smoking Tobacco: Never Assessed Sex and Gender Information Value Date Recorded Sex Assigned at Not on file Legal Sex Male 5:06 AM EST Gender Identity Not on file Sexual Orientation Not on file Plan of Treatment Not on file Care Teams Billing Coordinator Relationship Specialty Start Date End Date Lucho Murry [facility] [place] [address] PCP - General 06/24/17
--- OUTSIDE RECORDS SUMMARY | 2025-04-13 17:40 | XMS_ITS | Clinical Summary ---
Author Organization [facility] Prior to 09/24/24 Address [address] [place] [address] Care Team Providers Care Viticulture Teacher Name Role Phone Karla Anderson NP Primary Care Provider [phone] [phone] Allergies No known active allergies Medications Medication [...] Advance Directives For more information, please contact: [phone] Documents on File Type Date Recorded Patient Cabin Service Agent Expl anation Advance Directive and Living Will 02/01/2019 10:45 AM Care Teams Viticulture Teacher Relationship Specialty Start Date End Date Karla Anderson NP [address] [place] [address] [place] [address] PCP - General Family Medicine 02/01/19
--- OUTSIDE RECORDS SUMMARY | 2025-04-13 17:40 | XMS_ITS | Clinical Summary ---
Author Organization [facility] Address [address] [place] [address] Care Team Providers Care Pattern Stamper Name Role Phone Karla Anderson NP Primary Care Provider [phone] Surgical History Surgery Date Site/Laterality Comments TOTAL HIP ARTHROPLASTY Left PROCEDURE:TOTAL HIP ARTHROPLASTY BICEPS TENDON REPAIR Right PROCEDURE:BICEPS TENDON REPAIR COLONOSCOPY PROCEDURE:COLONOSCOPY KNEE ARTHROSCOPY 02/04/2019 Right PROCEDURE:KNEE ARTHROSCOPY;COMMENT:Procedure: ARTHROSCOPY RIGHT KNEE, PARTIAL MEDIAL MENISCTOMY; Surgeon: Gilmar Sheppard MD; Location: [facility]; Service: Orthopedics; Laterality: Right; Medical History Medical History Date Comments Insomnia DX:Insomnia GERD (gastroesophageal reflux disease) DX:GERD (gastroesophageal reflux disease) RLS (restless legs syndrome) DX: RLS (restless legs syndrome) Hyperlipidemia DX:Hyperlipidemi a Femur fracture (CMS/HCC V24, CMS/HCC V28) 1981 DX:Femur fracture ([facility]);COMMENT:on right Rib fractures 1981 DX:Rib fractures [...] age to complete this topic Care Teams Pattern Stamper Relationship Specialty Start Date End Date Karla Anderson NP [address] [place] [phone] PCP - General Family Medicine 02/01/19
--- OUTSIDE RECORDS SUMMARY | 2025-04-13 17:40 | XMS_ITS | Clinical Summary ---
Author Organization [facility] Address [address] [place], [place] [id number] Care Team Providers Care Ceramic Plater Name Role Phone Lucho Murry Primary Care [...] Influenza Vaccine 11/25/2024 COVID-19 Vaccine (1 - 2024-2 6 season) 2024 RSV Vaccine 50 years and old er and Patients (1 - 1-dose 75+ series) 2038 Hepatitis B Vaccines Aged Out No long er eligible based on patient's age to complete this topic Insurance MEDICARE PART A & B [facility] Care Teams Ceramic Plater Relationship Specialty Start Date End Date Lucho Murry DO [address] [place] [address] PCP - General Internal Medicine 11/28/16
== END 2025-04-13 13:34 | disposition home or self-care (01) ==
LOC: HO.US 13:33
PROVIDERS: Visit Provider Surgery Vascular Surgery
DX: I83.11 Varicose veins of right lower extremity with inflammation (principal)
CPT/HCPCS: 93970

== ENCOUNTER → 2025-04-13 13:35 | Outpatient (BNV) | payer MEDICARE, SELFPAY | PROVIDERS: Visit Provider Radiology Diagnostic Radiology | DX: I83.11 Varicose veins of right lower extremity with inflammation (principal) | CPT/HCPCS: 93970 ==